=== PATIENT | female | born 1930 | race Asian ===

== ENCOUNTER 2018-10-18 10:09 | Inpatient (IN) | payer MEDICARE, OTHER ==
[~2018-10-18] VITALS: Ht 157.5 cm; Wt 48.1 kg
[2018-10-18 10:38] VITALS: BP 125/72
[2018-10-18] MEDS ORDERED: GABAPENTIN100 MG ORAL (10:57)
[2018-10-18] MEDS ORDERED: ARICEPT23 MG ORAL (10:57)
[2018-10-18] MEDS ORDERED: ACETAMINOPHEN500 M5 ORAL (10:57)
[2018-10-18] MEDS ORDERED: COREG6.25 MG ORAL (10:57)
[2018-10-18] MEDS ORDERED: FAMOTIDINE20 MG ORAL (10:57)
[2018-10-18] MEDS ORDERED: CYMBALTA20 MG ORAL (10:57)
[2018-10-18] MEDS ORDERED: CENTRUM SILVER1 EAC5 PO (10:57)
[2018-10-18] MEDS ORDERED: NAMENDA5 MG ORAL (11:01)
[2018-10-18] MEDS ORDERED: LUTEIN20 M1 PO (11:01)
[2018-10-18] MEDS ORDERED: PANTOPRAZOLE SO20 MG ORAL (11:01)
[2018-10-18] MEDS ORDERED: NITROFURANTOIN100 M2 ORAL (11:01)
[2018-10-18] MEDS ORDERED: LIDOCAINE700 M1 TP (11:01)
[2018-10-18] MEDS ORDERED: IRON325 M1 PO (11:01)
[2018-10-18] MEDS ORDERED: NORVASC10 MG ORAL (11:01)
--- NOTE | 2018-10-18 11:02 | NUR ---
ED Nurse Note: Patient javier to ER by family member due to increased confusion and paranoia. Alert and oriented x3, verbally responsive and has hearing problem. Patient is ambulatory with walker. Bladder/ bowel incontinent. Patient has history of multiple fall, CHD, stents, MCI. No SOB, Breathing even and unlabored.
[2018-10-18] MEDS ORDERED: ACETAMINOPHEN500 MG ORAL (11:03)
[2018-10-18] MEDS ORDERED: SPIRONOLACTONE100 MG ORAL (11:03)
[2018-10-18 11:18] LABS: BASOPHILS % (AUTO) 1.7 % (0.0-2.0); EOSINOPHILS % (AUTO) 1.8 % (0.0-3.0); HEMATOCRIT 42.2 % (37.0-47.0); HEMOGLOBIN 15.2 G/DL (12.0-16.0); LYMPHOCYTES % (AUTO) 11.7 % (20.0-45.0); MEAN CORPUSCULAR VOLUME 94 FL (80-99); MONOCYTES % (AUTO) 3.3 % (1.0-10.0); NEUTROPHILS % (AUTO) 81.5 % (45.0-75.0); PLATELET COUNT 186 K/UL (150-450); RED BLOOD COUNT 4.48 M/UL (4.20-5.40); WHITE BLOOD COUNT 12.1 K/UL (4.8-10.8)
[2018-10-18 11:32] LABS: ANION GAP 12 mmol/L (5-15); BLOOD UREA NITROGEN 14 mg/dL (7-18); CALCIUM 9.5 MG/DL (8.5-10.1); CARBON DIOXIDE 24 MMOL/L (21-32); CHLORIDE 94 MMOL/L (98-107); CREATININE 1.2 MG/DL (0.55-1.30); POTASSIUM 3.9 MMOL/L (3.5-5.1); SODIUM 130 MMOL/L (136-145)
[2018-10-18 11:47] LABS: ALANINE AMINOTRANSFERASE 19 U/L (12-78); ALBUMIN 3.3 G/DL (3.4-5.0); ALBUMIN/GLOBULIN RATIO 0.8 (1.0-2.7); ALKALINE PHOSPHATASE 78 U/L (46-116); ASPARTATE AMINO TRANSFERASE 30 U/L (15-37); BILIRUBIN,DIRECT 0.3 MG/DL (0.0-0.3); BILIRUBIN,TOTAL 1.6 MG/DL (0.2-1.0); CKMB 2.8 NG/ML (0.0-3.6); CREATINE KINASE 100 U/L (26-308)
[2018-10-18 12:01] LABS: APPEARANCE,URINE SLIGHTLY CLOUDY; BILIRUBIN, URINE NEGATIVE (NEGATIVE); GLUCOSE, URINE (UA) NEGATIVE (NEGATIVE); KETONES,URINE 3+ (NEGATIVE); LEUKOCYTE ESTERASE ,URINE 2+ (NEGATIVE); NITRITE,URINE POSITIVE (NEGATIVE); PH,URINE 6.5 (4.5-8.0); PROTEIN,URINE 1+ (NEGATIVE); UROBILINOGEN,URINE NORMAL MG/DL (0.0-1.0)
[2018-10-18 12:02] LABS: COLOR,URINE YELLOW
--- NOTE | 2018-10-18 12:14 | Emergency Room Report ---
History of Present Illness General Chief Complaint: General Complaint Source: Patient, Family Member Present Illness HPI Patient presents emergency department today with acute altered mental status. Patient apparently has been having abnormal behavior with multiple episodes of falls. Patient denies any specific complaints but according to patient's son patient has been progressively getting worse. Patient's primary care physician is Dr. Stephan Arndt. Patient is currently at an assisted living facility but essentially being difficult to handle and therefore was sent here for further evaluation. Patient has significant confusion and paranoia. Symptoms noted to be severe. Patient has not been eating or drinking. Is found wandering the crews sometimes naked. Patient apparently has been talking to herself and having delusions. Denies suicidal homicidal ideations. No other modifying factors. No other associated signs and symptoms. No other complaints were noted. Allergies: Coded Allergies: ACETAMINOPHEN (Verified Allergy, Unknown, 10/18/18) CIPROFLOXACIN (Verified Allergy, Unknown, 10/18/18) CODEINE (Verified Allergy, Unknown, 10/18/18) IBUPROFEN (Verified Allergy, Unknown, 10/18/18) IODINE (Verified Allergy, Unknown, 10/18/18) NAPROXEN (Verified Allergy, Unknown, 10/18/18) OXYCODONE (Verified Allergy, Unknown, 10/18/18) PENICILLINS (Verified Allergy, Unknown, 10/18/18) Shrimp (Verified Allergy, Unknown, 10/18/18) Uncoded Allergies: BRUSSEL SPROUTS (Allergy, Unknown, 10/18/18) LACTOSE INTOLERANT (Allergy, Unknown, 10/18/18) PLASTIC TAPE (Allergy, Unknown, 10/18/18) Patient History Past Medical History: HTN Past Surgical History: none Pertinent Family History: none Social History: Denies: smoking, alcohol use, drug use Now: No Reviewed Nursing Documentation: PMH: Agreed; PSxH: Agreed Nursing Documentation-PMH Past Medical History: No History, Except For Hx Hypertension: Yes Review of Systems All Other Systems: negative except mentioned in HPI Physical Exam Vital Signs Date Time Temp Pulse Resp B/P (MAP) Pulse Ox O2 Delivery O2 Flow Rate FiO2 10/18/18 10:19 98.1 88 20 104/66 (79) 95 Room Air Sp02 EP Interpretation: reviewed, normal General Appearance: alert, mild distress Head: normocephalic Eyes: bilateral eye normal inspection ENT: normal ENT inspection, hearing grossly normal, normal voice Neck: normal inspection, full range of motion, supple, no bony tend Respiratory: normal inspection, lungs clear, normal breath sounds, no respiratory distress, no retraction, no wheezing Cardiovascular #1: regular rate, rhythm, no edema Gastrointestinal: normal inspection, normal bowel sounds, non tender, soft, no guarding, no hernia Genitourinary: no CVA tenderness Musculoskeletal: normal inspection, back normal, normal range of motion Neurologic: normal inspection, alert, responsive, speech normal Psychiatric: normal inspection, judgement/insight normal, mood/affect normal Medical Decision Making Diagnostic Impression: Primary Impression: UTI (urinary tract infection) Additional Impressions: Acute alteration in mental status Mild dehydration ER Course Patient presents emergency department today complaint acute altered mental status and weakness. Patient is recently being treated for UTI as well. Symptoms noted to be severe. Patient is not eating and drinking. Differential diagnoses include acute sepsis, electrolyte abnormality, CVA, intracranial injury, fracture just name a few. Given the severity of the patient's presentation I felt this is a highly complex patient. This patient required extensive workup. Patient laboratory work-up shows evidence UTI. Patient also appeared clinically slightly dehydrated was given fluids. Because of patient's severe altered mental status and ability to thrive out of her own and inability care for self I feel the patient require admission. Will discuss case with Dr. Stephan Sorenson for admission. Labs Test 10/18/18 10:56 10/18/18 11:37 White Blood Count 12.1 K/UL (4.8-10.8) Red Blood Count 4.48 M/UL (4.20-5.40) Hemoglobin 15.2 G/DL (12.0-16.0) Hematocrit 42.2 % (37.0-47.0) Mean Corpuscular Volume 94 FL (80-99) Mean Corpuscular Hemoglobin 33.9 PG (27.0-31.0) Mean Corpuscular Hemoglobin Concent 35.9 G/DL (32.0-36.0) Red Cell Distribution Width 12.0 % (11.6-14.8) Platelet Count 186 K/UL (150-450) Mean Platelet Volume 5.5 FL (6.5-10.1) Neutrophils (%) (Auto) 81.5 % (45.0-75.0) Lymphocytes (%) (Auto) 11.7 % (20.0-45.0) Monocytes (%) (Auto) 3.3 % (1.0-10.0) Eosinophils (%) (Auto) 1.8 % (0.0-3.0) Basophils (%) (Auto) 1.7 % (0.0-2.0) Sodium Level 130 MMOL/L (136-145) Potassium Level 3.9 MMOL/L (3.5-5.1) Chloride Level 94 MMOL/L (98-107) Carbon Dioxide Level 24 MMOL/L (21-32) Anion Gap 12 mmol/L (5-15) Blood Urea Nitrogen 14 mg/dL (7-18) Creatinine 1.2 MG/DL (0.55-1.30) Estimat Glomerular Filtration Rate mL/min (>60) Glucose Level 137 MG/DL (74-106) Calcium Level 9.5 MG/DL (8.5-10.1) Total Bilirubin 1.6 MG/DL (0.2-1.0) Direct Bilirubin 0.3 MG/DL (0.0-0.3) Aspartate Amino Transf (AST/SGOT) 30 U/L (15-37) Alanine Aminotransferase (ALT/SGPT) 19 U/L (12-78) Alkaline Phosphatase 78 U/L (46-116) Total Creatine Kinase 100 U/L (26-308) Creatine Kinase MB 2.8 NG/ML (0.0-3.6) Creatine Kinase MB Relative Index 2.8 Troponin I 0.020 ng/mL (0.000-0.056) Pro-B-Type Natriuretic Peptide 2537 pg/mL (0-125) Total Protein 7.3 G/DL (6.4-8.2) Albumin 3.3 G/DL (3.4-5.0) Globulin 4.0 g/dL Albumin/Globulin Ratio 0.8 (1.0-2.7) Lipase 144 U/L (73-393) Urine Color Yellow Urine Appearance Slightly cloudy Urine pH 6.5 (4.5-8.0) Urine Specific [place] 1.010 (1.005-1.035) Urine Protein 1+ (NEGATIVE) Urine Glucose (UA) Negative (NEGATIVE) Urine Ketones 3+ (NEGATIVE) Urine Blood 1+ (NEGATIVE) Urine Nitrite Positive (NEGATIVE) Urine Bilirubin Negative (NEGATIVE) Urine Urobilinogen Normal MG/DL (0.0-1.0) Urine Leukocyte Esterase 2+ (NEGATIVE) Urine RBC 0-2 /HPF (0 - 2) Urine WBC 2-4 /HPF (0 - 2) Urine Squamous Epithelial Cells Occasional /LPF Urine Bacteria Many /HPF (NONE) EKG Diagnostic Results Rate: normal Rhythm: NSR ST Segments: no acute changes Other Impression PVCs Rhythm Strip Diag. Results EP Interpretation: yes Rate: 73 Rhythm: NSR, no ectopy, other - Occasional PVCs Last Vital Signs Date Time Temp Pulse Resp B/P (MAP) Pulse Ox O2 Delivery O2 Flow Rate FiO2 10/18/18 10:38 96.4 79 18 125/72 98 Room Air Status: improved Disposition: ADMITTED INPATIENT Condition: Serious Referrals: Stephan Sorenson MD (PCP) Esteban Valverde MD Oct 18, 2018 12:14
[2018-10-18] MEDS ORDERED: cefTRIAXone 1 GM in NS 55 ML IVPB ONE (12:15)
--- NOTE | 2018-10-18 12:22 | Diagnostic Imaging Report ---
Indication: Headache. Head trauma Technique: Contiguous 5 mm thick transaxial imaging of the head obtained in a Siemens Sensation [address] scanner. Soft tissue and bone windows generated. Automatic Exposure Control was utilized. Total Dose length Product (DLP): 1425.[address] Dose Index Volume (CTDIvol): 70.38 mGy Comparison: none Findings: There is moderate prominence of the ventricles, basal cisterns, and cerebral sulci consistent with atrophy. Moderate, nonspecific, white matter hypoattenuation is noted throughout the brain consistent with chronic small vessel disease. There is no midline shift, edema, acute hemorrhage, mass effect, or abnormal extra-axial fluid collections. Bones are unremarkable. Impression: No acute intracranial bleed, mass effect or edema. Moderate atrophy of the brain. Evidence of chronic small vessel disease involving white matter tracts. The CT scanner at [facility] is accredited by the [employer] and the scans are performed using dose optimization techniques as appropriate to a performed exam including Automatic Exposure control.
--- NOTE | 2018-10-18 12:27 | Diagnostic Imaging Report ---
Indication: Cough Comparison: None A single view chest radiograph was obtained. Findings: No definite infiltrate or pulmonary vascular congestion identified. The heart is normal in size. The aorta is mildly enlarged consistent with atherosclerotic vascular disease. The bones are osteopenic. Impression: No acute disease
[2018-10-18 12:44] VITALS: BP 130/47
--- NOTE | 2018-10-18 12:46 | NUR ---
ED Nurse Note: covering for primary RN, recieved pt on gurney, awake able to comprehend, no complaint at the moment. with vss. will continue to monitor.
--- NOTE | 2018-10-18 12:48 | NUR ---
ED Nurse Note: [phone] terry healy. pt son in the waiting room
--- NOTE | 2018-10-18 14:20 | NUR ---
ED Nurse Note: Spoke with Sawyer JENNINGS from [facility] to give report. Addendum: 10/18/18 at 1433 by FATEMEH Amendment undone in EDM - 10/18/18 at 1441 by FATEMEH Spoke with Sawyer JENNINGS requesting to transfer the patient to SDU after 30 mins. Charge nurse made aware and acknowledged.
--- NOTE | 2018-10-18 14:20 | NUR ---
ED Nurse Note: Spoke with Sawyer JENNINGS from [facility] requesting to transfer paient after 30mins. Charge nurse made aware and acknowledged.
[2018-10-18 14:31] VITALS: BP 122/57
--- NOTE | 2018-10-18 15:00 | NUR ---
NURSE NOTES: Received patient from ER via gurney. Patient is alert and oriented x2-3 @ this time. Son mentioned that patient had episodes of poor po intake, with delusional thinking with visual hallucination with multiple falls within few months and weight loss of more than 30 ibs within 8 months.Denies any visual hallucination or delusional thinking @ this time. Denies any pain or discomfort. Medical history obtained from patient's son Arun who provided copy of advanced directives. Orientation given about the unit, meal times, call light use, fall precaution and etc. Demonstrated how to use call light. Patient is in yellow gown, socks for fall precautions, Door signed in place and allergy and fall risk band on left wrist. Patient is wearing upper and lower dentures.glasses and silver colored ring. Ring does not come off so son can not take it with him. Son will take assisted living keys with him.all belongings were checked by RN and son. Skin assessment done noted with multiple scrape on right face bilateral arms and lower ex's from previous falls and no edema or skin break. No redness on pressure points. Bed alarm is on for safety, Dr. Sorenson was paged for admission orders. Awaiting for return call.
[2018-10-18 16:00] VITALS: BP 118/62
--- NOTE | 2018-10-18 16:56 | NUR ---
NURSE NOTES: Received some admission order from Dr. Sorenson and he will come and put more order like DVT prophylaxis.
--- NOTE | 2018-10-18 17:30 | NUR ---
NURSE NOTES: patient consumed 75% of dinner and hydrated.
[2018-10-18] MEDS ORDERED: Memantine 10mg tab ORAL SCH (18:00)
--- NOTE | 2018-10-18 19:20 | NUR ---
NURSE NOTES: Dr. Sorenson came in to check the patient.
--- NOTE | 2018-10-18 19:26 | NUR ---
HAND-OFF: Report given to Anita.
--- NOTE | 2018-10-18 19:44 | NUR ---
NURSE NOTES: Received patient in bed, awake, alert, oriented x3/4, no acute distress noted, on room air, patient can ambulate with assistance to bedside commode, call light is within reach, bed is in low position, locked and alarm is on.Will continue to monitor for safety and comfort.
[2018-10-18 20:00] VITALS: BP 107/60
--- NOTE | 2018-10-18 20:11 | History & Physical ---
History and Physical History & Physicial Admitted: October 18, 2018. Patient I.D.: 88 year-old woman with anorexia, progressive confusion, hallucinations, and multiple falls. Two falls in last several days with periorbital ecchymosis and recent hip contusion. Partially treated E coli urinary tract infection. Patient admitted for intravenous antibiotics, further evaluation, medication titration, and assessment of her ability to return to her present setting. History of Present Illness: Ms. Hughes is a patient with a complex history of multiple chronic medical problems. She was first seen in the office in March of this year as a consultation requested by Dr. Joel Garland. At that time, Ms. Hughes presented with multifactorial failure to thrive, manifested by progressive weight loss beginning in March 2017, multiple falls, and fluctuating mental status with episodic disorientation, amnestic deficits, depressive symptomatology, and psychosis with hallucinations and delusions. 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 As an outpatient in the interim, medication adjustments have been made with tapering of gabapentin used for neuropathic and chronic pain, and the addition of Cymbalta, Aricept, and Namenda. Rozerem was also used briefly. Initially the patient appeared to respond, with improved alertness and affect. However in recent months, she has become more confused and experienced a number of falls with superficial trauma, some of which have required emergency department evaluation. At the same time the patient's oral intake has been poor and her weight loss has progressed with approximately 40 pounds of weight loss over 18-months. Recently with her further decline, laboratories were obtained and revealed evidence of a probable E. coli urinary tract infection. Macrobid was begun as an outpatient, however the patient continued to fall with at least 2 episodes over the last week, resulting in a right periorbital hematoma. Patient also became progressively more weak and unsteady on her feet, requiring more assistance and her [facility] facility. Her poor intake continued, and her son reported that she exhibited little interest, often isolating herself in her room , with occasional outbursts when refusing care or medications. The facility to discuss the possibility of moving her to a higher level of supervision. Because of the multiple falls and increasing confusion, after discussion with her son, it was decided to have her brought to the emergency room for further evaluation. In the emergency room, the patient had evidence of a mild leukocytosis and persistent bacteriuria with resolving pyuria, consistent with a partially treated urinary tract infection. Given the progressive weight loss, increasing confusion with possible psychiatric overlay, and the increasing weakness, it was decided to admit the patient for further evaluation and treatment. Past Medical History: 1. History of lupus and/or rheumatoid arthritis treated with low-dose prednisone, which is been tapered off over the last year, followed by Dr. Neil Mo. 2. History of coronary artery disease status post myocardial infarction with placement of 3 stents, and persistent left ventricular dysfunction. 3. Hypertension. 4. History of hypothyroidism, previously supplemented with levothyroxine, which was apparently discontinued sometime late last year. 5. History of osteoarthritis, with prior L2 L4 laminectomies. 6. Decreased visual acuity status post cataract surgeries with age-related macular degeneration with diminished ability to read requiring magnifying glass. 7. History of gastroesophageal reflux disease. 8. Lifelong difficult personality, with onset over the last several years of depressed affect, paranoia, and psychotic manifestations of hallucination and delusions. 9. Several year history of gradually progressive possible cognitive deficits, patchy. 10. Finding of old left occipital cerebrovascular accident on prior brain scan along with small vessel ischemic changes. 11. Recent urinary tract infections. 12. Possible sleep disorder with nocturnal wandering. 13. Significant progressive weight loss as described. 14. Progressive weakness with gait instability. 15. Apparent neuropathic pain with complaints of low back pain, treated with gabapentin in the past. Medications: 1. Amlodipine 10 mg daily. 2. Spironolactone 25 mg daily. 3. Carvedilol 6.25 mg twice daily. 4. Gabapentin 100 mg twice a day. 5. Famotidine 30 mg daily. 6. Pantoprazole 40 mg nightly. 7. Lidocaine patch as needed 8. Lutein 20 mg daily. 9. Centrum Silver daily. 10. Cymbalta 20 mg daily. 11. Donepezil 10 mg daily. 12. Namenda extended release 28 mg daily. Allergies: Multiple reported allergies and/or intolerances including acetaminophen, ciprofloxacin, codeine, ibuprofen, Naprosyn, oxycodone, penicillins, plastic tape, iodine, lactose intolerance, shrimp, [place] sprouts. Social History: Ms. 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 She was approximately 7 years ago. She lost 1 son alcoholism. Her other son Arun is her surrogate decision maker and sister with her living arrangements and financial arrangements. She moved into an [facility] last year. Family History: Notable for multiple family members afflicted with hypertension, cardiac disease , coronary artery disease, and cerebrovascular disease. History of cancer in father and 2 sisters. History of alcoholism in father and son. History of domestic violence. Review of Systems: Despite the multiple symptoms reported by the patient's son and by caregivers at her facility, currently the patient denies all symptoms except for some mild tenderness and discomfort in the right periorbital area associated with her prior fall, and a area of right hip contusion associated with another fall. Her response is likely unreliable given her current affect and mental status. Physical Examination: Blood pressure 104/66, heart rate 88 and regular, respiratory rate 20, temperature 98.1, oxygen saturation 95% on room air. Alert, flat affect, passive, but not in any acute distress. Appears slightly bewildered. Reports that it is the end of October, identifies this is [facility] , and accurately states she is living in a facility in [place]. Her speech is fluent with no evidence of dysarthria or word finding difficulties inconsistent with her baseline. Head and neck: Resolving right periorbital abrasions and contusions with ecchymosis. Patient denies pain with extraocular movements. Vision is limited but apparently not more so than her baseline. Oropharynx is minimally dry. Neck without masses and with normal range of motion. Breasts: No dominant masses. Chest: Distant breath sounds but clear. At times the patient's speech appears to be slightly breathless however her respirations do not reflect any overt tachypnea or bronchospasm. Cardiac: Regular rhythms without overt gallops murmurs or rubs. Abdomen: Normal bowel sounds. Soft nontender without masses or organomegaly appreciated. No suprapubic tenderness. Extremities: No distal edema no calf tenderness or cords. Neurological: Moves all extremities with no evidence of new focality. Laboratory Data: WBC 12.1, hematocrit 42.2%, MCV 94, platelet count 186, with 81.5% neutrophils. Sodium 130, potassium 3.9, chloride 94, carbon dioxide 24, BUN 14, creatinine 1.2, glucose 137, calcium 9.5, total bilirubin 1.6, direct bili 0.3, AST 30, ALT 19, alkaline phosphatase 78, total CK 100, CK-MB 2.8, troponin 0 0.02, proBNP 2537, total protein 7.3, albumin 3.3, lipase 144. Urinalysis with specific gravity 1.010 protein 1+, ketones 3+, blood 1+, nitrite positive, leukocyte esterase 2+, RBC 0-2, WBCs 2-4, bacteria many. Chest x-ray shows no evidence of acute disease. Head CT scan shows chronic small vessel disease white matter with moderate atrophy with no evidence of acute bleed mass-effect or edema. Electrocardiogram shows nonspecific T wave changes first-degree AV block with occasional PACs with aberrant conduction normal QT interval. Impression/Plan: Ms. Hughes presents with multifactorial failure to thrive. She has a partially treated E. coli urinary tract infection. Despite several days of oral Macrobid she presented with significant bacteriuria and a mild leukocytosis. She was given ceftriaxone in the emergency room and this will be continued pending repeat culture results and clinical response. Abdominal and pelvic imaging could be considered to rule out upper tract anatomy and stones which could be decreasing the efficacy of therapy. There may be other occult metabolic factors contributing as well. Laboratories will be checked to rule out such contribution. Patient's cognitive status and psychiatric presentation are difficult to disentangle. There appears to have been a history of characterologic symptoms which may be exacerbated with the current reported psychotic symptoms. In addition the patient appears to have had a significant depressive syndrome for a number of years which may have been primary or secondary to cognitive changes. In addition there appears to be underlying small vessel cerebrovascular disease with a history of prior discrete occipital stroke. Whether the stroke is contributing in the patient's visual loss is not clear at this time and may be difficult to ascertain. Finally there appears to be a component of delirium or encephalopathy likely associated with the urinary tract infection and/or other metabolic processes. Patient's medications may also be contributing both to her cognitive status as well as to gait instability, weakness, and weight loss. Given the patient's relatively low blood pressure, the patient's antihypertensives will be held for the time being. Echocardiography will be done to evaluate the patient's current ejection fraction and the relative indication for spironolactone and carvedilol. Because of the patient's patchy memory loss, the diagnosis of Alzheimer's dementia is uncertain, and the benefit of the patient's Namenda and even possibly Aricept is unclear. Because of potential effects on appetite, the Namenda will be decreased in dosage. Patient's gabapentin will be discontinued at this point because of the potential sedating effects. The duloxetine will be continued and a low dose of escitalopram will be added. Rozerem will be given as delirium prophylaxis at least initially. Because of the patient's fall risk, and the fact that she will be mobilize as much as possible, antithrombotic therapy will not be initiated initially. In addition, sequential compression devices may add to the patient's confusion and paranoia and will not be employed for the time being. Additional intervention will be considered depending on the patient's response to therapy and further laboratory results. Given the patient's significant weight loss and her evident frailty at the present time, a discharged to nursing home facility for a period of rehabilitation would be a consideration prior to returning to her prior level of care. The patient situations been reviewed thoroughly with the patient's son, who concurs with the present approach. He verifies that the patient is to be DNR given her function overall prognosis and quality of life, but she should receive usual therapies as noted. Stephan Sorenson MD Oct 18, 2018 20:11
[2018-10-18] MEDS: Donepezil 10mg tab ORAL SCH (20:29)
[2018-10-18] MEDS: Ramelteon 8mg tab (Approved for Delirium use only) ORAL SCH (20:29)
--- NOTE | 2018-10-18 20:32 | NUR ---
CASE MANAGEMENT: REVIEW 88Y/F PRESENTED TO ED FROM [facility] CC: CONFUSION . POOR ORAL INTAKE SI: AMS . S/P FALL . DEHYDRATION . UTI T 96.4 HR 79 RR 18 BP 125/72 SAT 98% ROOM AIR WBC 12.1 NA 130 BNP 2537 UA: NITRITE + LEUKOCYTE ESTERASE 2+ BACTERIA MANY IS: NS IVF BOLUS X1 CEFTRIAXONE IV X1 PATIENT ADMITTED TO MED/SURG UNIT 10/18/2018 DCP: PATIENT IS FROM [facility]
[2018-10-19 00:09] VITALS: BP 100/59
[2018-10-19 04:00] VITALS: BP 119/61
[2018-10-19 06:41] LABS: BASOPHILS % (AUTO) 1.1 % (0.0-2.0); EOSINOPHILS % (AUTO) 6.5 % (0.0-3.0); HEMOGLOBIN 14.7 G/DL (12.0-16.0); LYMPHOCYTES % (AUTO) 13.8 % (20.0-45.0); MEAN CORPUSCULAR VOLUME 96 FL (80-99); MONOCYTES % (AUTO) 6.1 % (1.0-10.0); NEUTROPHILS % (AUTO) 72.5 % (45.0-75.0); PLATELET COUNT 190 K/UL (150-450); RED BLOOD COUNT 4.29 M/UL (4.20-5.40); WHITE BLOOD COUNT 12.5 K/UL (4.8-10.8)
--- NOTE | 2018-10-19 06:42 | NUR ---
HAND-OFF: Report given to Mina JENNINGS. Addendum: 10/19/18 at 0646 by KEREN SINGER RN report is given to Sawyer JENNINGS
--- NOTE | 2018-10-19 07:20 | NUR ---
NURSE NOTES: Received patient in bed, alert and awake x3. Not in respiratory/cardiac distress. IV intact, no s/s of infiltration. Bed is in lowest position and locked. Call light within reach. Patient consumed 100% of breakfast and hydrating herself. Reminded patient to call nurses if needed. Patient able to make her needs known. Will continue plan of care.
[2018-10-19 07:21] LABS: ANION GAP 12 mmol/L (5-15); BLOOD UREA NITROGEN 9 mg/dL (7-18); CALCIUM 9.3 MG/DL (8.5-10.1); CARBON DIOXIDE 24 MMOL/L (21-32); CHLORIDE 96 MMOL/L (98-107); POTASSIUM 4.3 MMOL/L (3.5-5.1); SODIUM 132 MMOL/L (136-145)
[2018-10-19 08:00] VITALS: BP 137/68
[2018-10-19] MEDS: Memantine 5 MG TAB ORAL SCH ×2 (08:20→18:08)
--- NOTE | 2018-10-19 09:21 | NUR ---
P.T Note: P.T evaluation completed and treatment initiated. Please refer to P.T evaluation for current functional status. Pt is alert, O x 4 , pleasant and cooperative. Pt denied c/o major pain but facial soreness at the R orbit and Zygomatic area. Pt also c/o feeling generally weak and unstable with walking leading her fall multiple times at the place she's currently residing. Pt currently require SBA X 1 for bed mobility, min a x 1 for transfers and CGA x 1 for gait/ambulation activities. Skilled P.T service is warranted to improve her strength, balance and endurance to increase her mobility independence and safety. Recommend SNF for further rehab to further increase safe mobility and independence at [place]. Pt is cleared for OOB activities with nursing assistance. Thank you for this referral.
[2018-10-19] MEDS: cefTRIAXone 1 GM in D5W 55 ML IVPB SCH (10:00)
--- NOTE | 2018-10-19 11:38 | NUR ---
RD ASSESSMENT & RECOMMENDATIONS SEE CARE ACTIVITY FOR COMPLETE ASSESSMENT DAILY ESTIMATED NEEDS: Needs based on wt loss/ 48kg 28-33 kcals/kg 1654-0912 total kcals 1-1.5 g protein/kg 48-72 g total protein 25-30 mL/kg 1483-2210 total fluid mLs NUTRITION DIAGNOSIS: Unintentional wt loss R/T poor appetite as evidenced by pt reports significant wt loss of 34lbs/24.6% in <7-8 months. CURRENT DIET:KEN, mech soft chopped PO DIET RECOMMENDATIONS: Low Na/ texture as tolerated ADDITIONAL RECOMMENDATIONS: * Calibrated bedscale wt for accurate CBW * Weekly wt monitoring given possible h/o significant wt loss * Monitor PO intake closely- pt reports appetite is better * Snacks BID in b/w meals * MVI x 1 as supplement
[2018-10-19 12:00] VITALS: BP 121/61
[2018-10-19 16:00] VITALS: BP 119/71
--- NOTE | 2018-10-19 16:25 | Geriatric Progress Note ---
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 years (4) History of coronary artery stent placement (5) Cardiomyopathy (6) Hypertension (7) Lupus (systemic lupus erythematosus) (8) Osteoarthritis (9) Status post cataract extraction and insertion of intraocular lens of left eye (10) Status post cataract extraction and insertion of intraocular lens of right eye (11) Age-related macular degeneration (12) Hearing loss (13) Hypothyroidism (14) Depressed affect (15) Hallucinations, unspecified (16) Sleep disorder (17) Frequent falls (18) UTI (urinary tract infection) (19) Altered mental status (20) Acute alteration in mental status Assessment/Plan Patient with no significant hypertension despite being off meds. Continue to monitor. History of NV, s/p stents with decreased EF per son. Echo pending to evaluate current status, ? if Coreg should be restarted. Eating slightly better, monitor. History of 40 lb. weight loss over 18 months. Elevated TSH, with history of prior T4 use. Recheck TSH and other TFTs to determine if T4 supplementation indicated. Depressed affect with patchy inconsistent memory deficits. Proportion of fixed cognitive loss, possible psychosis associated with sensory deficits, delirium associated with UTI, and pseudodementia of depression unclear. Tolerating addition of low dose Lexapro so far, monitor. Continue Ceftriaxone for now. Recheck labs, await echo. Discussed with son x 20 minutes re status, differential diagnoses, treatment approach and possible d/c options. He concurs with present approach. Discussed with: patient, family, hospital staff Subjective Interval Events Patient quiet, flat, but denies c/o. Staff reports no behavioral issues. Ate 100% at breakfast, less at lunch. P.T. notes with FWW, CGA x 1, patient unsteady, with LOB on turns. Labs with some decrease in BNP, still mild leukocytosis. No Urine growth as yet. Elevated TSH. Bp acceptable off meds so far. Constitutional: Denies: chills, pain, sweats, fever Respiratory: Denies: shortness of breath Cardiovascular: Denies: chest pain Gastrointestinal/Abdominal: Denies: abdominal pain, nausea Genitourinary: Denies: dysuria - Denies all c/o. Geriatric Geriatric Last 24 Hour Vital Signs Date Time Temp Pulse Resp B/P (MAP) Pulse Ox O2 Delivery O2 Flow Rate FiO2 10/19/18 12:00 98.0 87 19 121/61 (81) 99 10/19/18 09:00 Room Air 10/19/18 08:00 97.9 87 18 137/68 (91) 98 10/19/18 04:00 97.4 74 18 119/61 (80) 10/19/18 00:09 97.8 81 20 100/59 (73) 97 10/18/18 21:00 Room Air 10/18/18 20:00 98.1 78 20 107/60 (76) 96 Intake and Output 10/18/18 10/19/18 18:59 06:59 Intake Total 120 ml Balance 120 ml Intake Oral 120 ml # Voids 3 Laboratory Tests Test 10/19/18 05:55 White Blood Count 12.5 K/UL (4.8-10.8) H Red Blood Count 4.29 M/UL (4.20-5.40) Hemoglobin 14.7 G/DL (12.0-16.0) Hematocrit 41.0 % (37.0-47.0) Mean Corpuscular Volume 96 FL (80-99) Mean Corpuscular Hemoglobin 34.4 PG (27.0-31.0) H Mean Corpuscular Hemoglobin Concent 36.0 G/DL (32.0-36.0) Red Cell Distribution Width 10.0 % (11.6-14.8) L Platelet Count 190 K/UL (150-450) Mean Platelet Volume 5.5 FL (6.5-10.1) L Neutrophils (%) (Auto) 72.5 % (45.0-75.0) Lymphocytes (%) (Auto) 13.8 % (20.0-45.0) L Monocytes (%) (Auto) 6.1 % (1.0-10.0) Eosinophils (%) (Auto) 6.5 % (0.0-3.0) H Basophils (%) (Auto) 1.1 % (0.0-2.0) Sodium Level 132 MMOL/L (136-145) L Potassium Level 4.3 MMOL/L (3.5-5.1) Chloride Level 96 MMOL/L (98-107) L Carbon Dioxide Level 24 MMOL/L (21-32) Anion Gap 12 mmol/L (5-15) Blood Urea Nitrogen 9 mg/dL (7-18) Creatinine 1.0 MG/DL (0.55-1.30) Estimat Glomerular Filtration Rate mL/min (>60) Glucose Level 88 MG/DL (74-106) Calcium Level 9.3 MG/DL (8.5-10.1) Pro-B-Type Natriuretic Peptide 2150 pg/mL (0-125) H Thyroid Stimulating Hormone (TSH) 22.323 uiU/mL (0.358-3.740) Current Medications Medications (Trade) Dose Ordered Sig/Mansi Route PRN Reason Start Time Stop Time Status Last Admin Dose Admin Ceftriaxone Sodium 1 gm/ Dextrose 55 ml @ 110 mls/hr DAILY IVPB 10/19/18 09:00 10/26/18 08:59 10/19/18 10:00 Donepezil HCl (Aricept) 10 mg QHS ORAL 10/18/18 21:00 11/17/18 20:59 10/18/18 20:29 Duloxetine HCl (Cymbalta) 20 mg DAILY ORAL 10/19/18 09:00 11/18/18 08:59 10/19/18 08:20 Escitalopram Oxalate (Lexapro) 5 mg DAILY ORAL 10/19/18 09:00 11/18/18 08:59 10/19/18 08:20 Memantine (Namenda) 5 mg BID ORAL 10/19/18 09:00 11/17/18 17:59 10/19/18 08:20 Pantoprazole (Protonix) 40 mg DAILY ORAL 10/19/18 09:00 11/18/18 08:59 10/19/18 08:20 Ramelteon (Rozerem) 8 mg QHS ORAL 10/18/18 21:00 11/17/18 20:59 10/18/18 20:29 Height (Feet): 5 Height (Inches): 2.00 Weight (Pounds): 107 General Appearance: no apparent distress, alert, non-toxic Head: normocephalic, other - R periorbital abrasion and ecchymosis, healing. Eyes: bilateral anicteric ENT: normal voice Neck: full range of motion, no mass Respiratory: lungs clear - distal. Cardiovascular: regular rate, rhythm Gastrointestinal: normal bowel sounds, non tender, soft, no mass, no organomegaly, non-distended Musculoskeletal: no calf tenderness Edema: no edema noted Generalized Neurologic: alert, no new focality, other - Identifies date again as end of October 2018. Recalls this is [place], but thinks this her third day of admission. Recalls her residence at [place]. Recalls son retiring and moving to [place]. However, seems inaccurate about taking thyroid medication. Stephan Sorenson MD Oct 19, 2018 16:25
[2018-10-19] MEDS ORDERED: Tubing IV Secondary IV ONE (18:01)
--- NOTE | 2018-10-19 18:12 | Cardiology Report ---
APPROVED REPORT EXAM: Two-dimensional and M-mode echocardiogram with Doppler and color Doppler. INDICATION Cardiomyopathy M-Mode DIMENSIONS IVSd1.0 (0.7-1.1cm)Left Atrium (MM)1.6 (1.6-4.0cm) LVDd2.2 (3.5-5.6cm)Aortic Root3.4 (2.0-3.7cm) PWd1.3 (0.7-1.1cm)Aortic Cusp Exc.1.7 (1.5-2.0cm) IVSs1.6 cm LVDs1.1 (2.5-4.0cm) PWs0.9 cm Technically difficult study due to poor acoustical windows. Study quality precludes accurate assessment of regional wall motion. Normal left ventricular chamber size. Mildly reduced systolic function to extent visualized. Left ventricular ejection fraction estimated to be 45 %. No evidence of left ventricular hypertrophy . No evidence of pericardial effusion. All other cardiac chamber sizes are within normal limits. Focal aortic valve sclerosis with adequate cusp excursion. Thickened mitral valve leaflets with normal excursion. Mitral annulus and aortic root calcification. Pulmonic valve not well visualized. Normal tricuspid valve structure. IVC at size 1.6 cm without physiologic collapse . A color flow and spectral Doppler study was performed and revealed: Mild aortic regurgitation. Trace mitral regurgitation. Mitral diastolic velocities suggest reduced left ventricular relaxation c/w mild LV diastolic dysfunction (Grade I ). Trace tricuspid regurgitation. Tricuspid systolic velocities suggests peak right ventricular systolic pressure of 16 mmHg.
--- NOTE | 2018-10-19 18:23 | Cardiology Report ---
APPROVED REPORT EKG Measurement Heart [id number] Sinus rhythm with 1st degree AV block with premature atrial complexes with aberrant conduction Nonspecific T wave abnormality Abnormal ECG
--- NOTE | 2018-10-19 19:30 | NUR ---
HAND-OFF: Report given to Heidi.
--- NOTE | 2018-10-19 19:49 | NUR ---
NURSE NOTES: Patient in bed, awake, alert, verbally responsive. No s/s respiratory distress noted. No complaints of pain at this time. Call light is within reach, bed is in low position, locked and alarm is on. Will continue to monitor.
[2018-10-19 20:24] VITALS: BP 130/78
[2018-10-19] MEDS: Ramelteon 8mg tab (Approved for Delirium use only) ORAL SCH (20:39)
[2018-10-19] MEDS: Donepezil 10mg tab ORAL SCH (20:39)
--- NOTE | 2018-10-19 21:14 | NUR ---
CASE MANAGEMENT: REVIEW SI: AMS . S/P FALL . DEHYDRATION . UTI T 97.3 HR 96 RR 18 BP 130/78 SAT 95% ROOM AIR WBC 12.5 NA 132 BNP 21.50 TSH 22.323 IS: PROTONIX PO QD CEFTRIAXONE IV QD D5W @55ML/HR MED/SURG UNIT STATUS DCP: PATIENT IS FROM [facility]
[2018-10-20 00:10] VITALS: BP 125/65
[2018-10-20 04:24] VITALS: BP 118/67
--- NOTE | 2018-10-20 05:36 | NUR ---
NURSE NOTES: Patient asleep, no distress, v/s stable.
[2018-10-20 06:33] LABS: BASOPHILS % (AUTO) 1.2 % (0.0-2.0); HEMATOCRIT 41.9 % (37.0-47.0); HEMOGLOBIN 15.1 G/DL (12.0-16.0); LYMPHOCYTES % (AUTO) 16.6 % (20.0-45.0); MEAN CORPUSCULAR VOLUME 95 FL (80-99); MONOCYTES % (AUTO) 6.5 % (1.0-10.0); NEUTROPHILS % (AUTO) 67.8 % (45.0-75.0); PLATELET COUNT 199 K/UL (150-450); RED BLOOD COUNT 4.42 M/UL (4.20-5.40); RED CELL DISTRIBUTION WIDTH 9.8 % (11.6-14.8); WHITE BLOOD COUNT 9.3 K/UL (4.8-10.8)
--- NOTE | 2018-10-20 07:18 | NUR ---
HAND-OFF: Report given to JOSELITO PHILLIP RN.
--- NOTE | 2018-10-20 07:42 | NUR ---
NURSE NOTES: Received pt with stable condition. pt in bed with no sob nor in any form of distress noted. Breathing regular and unlabored. denies pain at this time. kept clean and comfortable. bed in lowest position. call light within reach at all time. will continue to monitor
[2018-10-20 08:00] VITALS: BP 121/63
[2018-10-20] MEDS: Memantine 5 MG TAB ORAL SCH ×2 (08:20→17:33)
[2018-10-20] MEDS: cefTRIAXone 1 GM in D5W 55 ML IVPB SCH (08:20)
[2018-10-20 09:33] LABS: ALANINE AMINOTRANSFERASE 21 U/L (12-78); ALBUMIN 2.7 G/DL (3.4-5.0); ALBUMIN/GLOBULIN RATIO 0.8 (1.0-2.7); ALKALINE PHOSPHATASE 68 U/L (46-116); ANION GAP 7 mmol/L (5-15); ASPARTATE AMINO TRANSFERASE 23 U/L (15-37); BILIRUBIN,TOTAL 0.9 MG/DL (0.2-1.0); BLOOD UREA NITROGEN 4 mg/dL (7-18); CALCIUM 8.7 MG/DL (8.5-10.1); CARBON DIOXIDE 27 MMOL/L (21-32); CHLORIDE 91 MMOL/L (98-107); CREATININE 0.8 MG/DL (0.55-1.30); SODIUM 125 MMOL/L (136-145)
--- NOTE | 2018-10-20 11:52 | NUR ---
P.T Note: P.T attempted however patient lethargic to participate. P.T will reattempt.
[2018-10-20 12:00] VITALS: BP 121/68
--- NOTE | 2018-10-20 14:47 | Geriatric Progress Note ---
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 years (4) History of coronary artery stent placement (5) Cardiomyopathy (6) Hypertension (7) Lupus (systemic lupus erythematosus) (8) Osteoarthritis (9) Status post cataract extraction and insertion of intraocular lens of left eye (10) Status post cataract extraction and insertion of intraocular lens of right eye (11) Age-related macular degeneration (12) Hearing loss (13) Hypothyroidism (14) Depressed affect (15) Hallucinations, unspecified (16) Sleep disorder (17) Frequent falls (18) UTI (urinary tract infection) (19) Altered mental status (20) Acute alteration in mental status (21) Hyponatremia (22) Hypokalemia (23) Hypomagnesemia Assessment/Plan Blood pressures remain controlled of medications. Echo with EF 45%. No specific indication for resumption of Coreg at this moment. Has sudden stopped eating again. Etiology not clear. TSH fluctuating, FT4 in normal range. Son now reports patient was taking levothyroxine 0.075 mg daily. Therefore will return to that dose and monitor further. More aggressively depressed, ? component of characterologic, ? rapid cycling, ? psychotic component, ? associated with electrolyte disturbance. For now will d/ c Rozerem and continue Cymbalta and Lexapro. Leukocytosis resolved. Continue Ceftriaxone for now. Marked change in electrolytes, will recheck and not initially supplement to r/o lab error. Otherwise, will need to supplement, and possibly restart spironolactone. Discussed with: patient, hospital staff Subjective Interval Events Patient on approach states "I am going to ." Patient thanks examiner for caring for her and says goodbye. Does not report specific symptoms, but when asked states she is short of breath, and c/o tenderness to palpation in BLEs distally. Has refused food today, and was too lethargic to cooperate with physical therapy. No agitation reported. Labs remarkable for decreased Na to 125, K to 3.0, Mg 1.5, BUN/Cr to 4/0.8. Wbc has normalized. Constitutional: Denies: chills, sweats, fever Respiratory: Reports: shortness of breath; Denies: cough Cardiovascular: Reports: palpitations; Denies: chest pain Gastrointestinal/Abdominal: Reports: abdominal pain, diarrhea Geriatric Geriatric Last 24 Hour Vital Signs Date Time Temp Pulse Resp B/P (MAP) Pulse Ox O2 Delivery O2 Flow Rate FiO2 10/20/18 12:00 97.3 84 18 121/68 (85) 96 10/20/18 09:31 Room Air 10/20/18 08:00 97.3 84 17 121/63 (82) 96 10/20/18 04:45 95 10/20/18 04:24 97.8 90 18 118/67 (84) 92 10/20/18 00:10 98.7 85 18 125/65 (85) 96 10/19/18 21:36 Room Air 10/19/18 20:24 97.3 96 18 130/78 (95) 95 10/19/18 16:00 98.0 84 17 119/71 (87) 98 Intake and Output 10/19/18 10/20/18 19:00 07:00 Intake Total 555 ml Balance 555 ml Intake Oral 500 ml IV Total 55 ml # Voids 4 2 # Bowel Movements 1 Laboratory Tests Test 10/20/18 05:11 10/20/18 08:40 White Blood Count 9.3 K/UL (4.8-10.8) Red Blood Count 4.42 M/UL (4.20-5.40) Hemoglobin 15.1 G/DL (12.0-16.0) Hematocrit 41.9 % (37.0-47.0) Mean Corpuscular Volume 95 FL (80-99) Mean Corpuscular Hemoglobin 34.3 PG (27.0-31.0) H Mean Corpuscular Hemoglobin Concent 36.2 G/DL (32.0-36.0) H Red Cell Distribution Width 9.8 % (11.6-14.8) L Platelet Count 199 K/UL (150-450) Mean Platelet Volume 5.3 FL (6.5-10.1) L Neutrophils (%) (Auto) 67.8 % (45.0-75.0) Lymphocytes (%) (Auto) 16.6 % (20.0-45.0) L Monocytes (%) (Auto) 6.5 % (1.0-10.0) Eosinophils (%) (Auto) 8.0 % (0.0-3.0) H Basophils (%) (Auto) 1.2 % (0.0-2.0) Erythrocyte Sedimentation Rate 46 MM/HR (0-30) H Sodium Level 125 MMOL/L (136-145) L Potassium Level 3.0 MMOL/L (3.5-5.1) L Chloride Level 91 MMOL/L (98-107) L Carbon Dioxide Level 27 MMOL/L (21-32) Anion Gap 7 mmol/L (5-15) Blood Urea Nitrogen 4 mg/dL (7-18) L Creatinine 0.8 MG/DL (0.55-1.30) Estimat Glomerular Filtration Rate mL/min (>60) Glucose Level 105 MG/DL (74-106) Calcium Level 8.7 MG/DL (8.5-10.1) Magnesium Level 1.5 MG/DL (1.8-2.4) L Total Bilirubin 0.9 MG/DL (0.2-1.0) Aspartate Amino Transf (AST/SGOT) 23 U/L (15-37) Alanine Aminotransferase (ALT/SGPT) 21 U/L (12-78) Alkaline Phosphatase 68 U/L (46-116) C-Reactive Protein, Quantitative 0.9 mg/dL (0.00-0.90) Pro-B-Type Natriuretic Peptide 2289 pg/mL (0-125) H Total Protein 6.2 G/DL (6.4-8.2) L Albumin 2.7 G/DL (3.4-5.0) L Globulin 3.5 g/dL Albumin/Globulin Ratio 0.8 (1.0-2.7) L Thyroid Stimulating Hormone (TSH) 15.448 uiU/mL (0.358-3.740) Free Thyroxine 1.00 NG/DL (0.76-1.46) Triiodothyonine (T3) Pending Current Medications Medications (Trade) Dose Ordered Sig/Mansi Route PRN Reason Start Time Stop Time Status Last Admin Dose Admin Ceftriaxone Sodium 1 gm/ Dextrose 55 ml @ 110 mls/hr DAILY IVPB 10/19/18 09:00 10/26/18 08:59 10/20/18 08:20 Donepezil HCl (Aricept) 10 mg QHS ORAL 10/18/18 21:00 11/17/18 20:59 10/19/18 20:39 Duloxetine HCl (Cymbalta) 20 mg DAILY ORAL 10/19/18 09:00 11/18/18 08:59 10/20/18 08:20 Escitalopram Oxalate (Lexapro) 5 mg DAILY ORAL 10/19/18 09:00 11/18/18 08:59 10/20/18 08:20 Memantine (Namenda) 5 mg BID ORAL 10/19/18 09:00 11/17/18 17:59 10/20/18 08:20 Pantoprazole (Protonix) 40 mg DAILY ORAL 10/19/18 09:00 11/18/18 08:59 10/20/18 08:20 Ramelteon (Rozerem) 8 mg QHS ORAL 10/18/18 21:00 11/17/18 20:59 10/19/18 20:39 Height (Feet): 5 Height (Inches): 2.00 Weight (Pounds): 107 General Appearance: alert - soft spoken, passive with more depressed affect. Head: normocephalic Eyes: bilateral anicteric Neck: full range of motion, no mass Respiratory: lungs clear - distant Cardiovascular: regular rate, rhythm - no ectopy appreciated. Gastrointestinal: normal bowel sounds, non tender, soft, no mass, no organomegaly, non-distended Musculoskeletal: no calf tenderness - but c/o tenderness diffusely to BLEs Edema: no edema noted Generalized Neurologic: no new focality Stephan Sorenson MD Oct 20, 2018 14:47
--- NOTE | 2018-10-20 15:19 | NUR ---
P.T NOTE: P.T REATTEMPTED THIS PM HOWEVER PATIENT TOO SLEEPY AND WOUND WAKE UP UPON P.T ATTEMPT. INFORMED DR. TERAN. WILL FOLLOW UP TOMORROW.
[2018-10-20 16:00] VITALS: BP 120/71
[2018-10-20 16:40] LABS: ANION GAP 11 mmol/L (5-15); BLOOD UREA NITROGEN 6 mg/dL (7-18); CALCIUM 8.5 MG/DL (8.5-10.1); CARBON DIOXIDE 24 MMOL/L (21-32); CHLORIDE 94 MMOL/L (98-107); CREATININE 0.7 MG/DL (0.55-1.30); POTASSIUM 3.1 MMOL/L (3.5-5.1); SODIUM 129 MMOL/L (136-145)
[2018-10-20] MEDS: Spironolactone 25mg tab ORAL SCH ×2 (18:15→19:11)
--- NOTE | 2018-10-20 19:08 | NUR ---
HAND-OFF: Report given to DICK Gordon.
[2018-10-20 20:00] VITALS: BP 129/73
[2018-10-20] MEDS ORDERED: SODIUM CHLORIDE IV ONE (20:00)
[2018-10-20] MEDS ORDERED: POTASSIUM CHLORIDE IV ONE (20:00)
--- NOTE | 2018-10-20 20:10 | NUR ---
NURSE NOTES: Patient in bed, asleep, verbally responsive. No s/s respiratory distress noted. No complaints of pain at this time. Call light is within reach, bed is in low position, locked and alarm is on. Will continue to monitor. Addendum: 10/20/18 at 2222 by KRYSTAL LONG RN RN IV intact, running IV fluids. Patient now incontinent, purewick was placed for urine specimen. Nurse explained to patient to call if she has the urge to urinate, patient verbalized understanding.
--- NOTE | 2018-10-20 20:26 | NUR ---
CASE MANAGEMENT: REVIEW SI: AMS . S/P FALL . DEHYDRATION . UTI T 97.3 HR 84 RR 18 BP 121/68 SAT 96% ROOM AIR ESR 46 NA 129 K 3.1 IS: PROTONIX PO QD CEFTRIAXONE IV QD D5W @55ML/HR PT EVAL MED/SURG UNIT STATUS DCP: PATIENT IS FROM [facility]
[2018-10-20] MEDS: Donepezil 10mg tab ORAL SCH (21:00)
--- NOTE | 2018-10-20 22:19 | NUR ---
NURSE NOTES: PATIENT REFUSED 2100 ARICEPT MEDICATION. NURSE EXPLAINED PURPOSE AND BENEFITS, PATIENT STILL REFUSED X2.
[2018-10-21 00:03] VITALS: BP 113/66
[2018-10-21 04:00] VITALS: BP 122/74
--- NOTE | 2018-10-21 07:06 | NUR ---
HAND-OFF: Report given to LOVELY PHILLIP RN.
--- NOTE | 2018-10-21 07:24 | NUR ---
NURSE NOTES: received report from DICK Howard. patient in bed. alert. oriented. verbally responsive. no respiratory distress on room air noted. no c/o pain at this time. RT side blindness, RTside hard to hearing. no solation. skin intact. IV on LAC20 saline lock intact. fall risk. bed in the lowest position. call light within reach. alarm on. will continue to provide plan of care. Addendum: 10/21/18 at 4326 by LOVELY PHILLIP RN NURSE NOTES: received report from DICK Gordon
[2018-10-21 07:29] LABS: BASOPHILS % (AUTO) 0.7 % (0.0-2.0); HEMATOCRIT 42.4 % (37.0-47.0); HEMOGLOBIN 15.3 G/DL (12.0-16.0); LYMPHOCYTES % (AUTO) 7.4 % (20.0-45.0); MEAN CORPUSCULAR VOLUME 96 FL (80-99); NEUTROPHILS % (AUTO) 83.9 % (45.0-75.0); PLATELET COUNT 187 K/UL (150-450); RED BLOOD COUNT 4.43 M/UL (4.20-5.40); WHITE BLOOD COUNT 12.9 K/UL (4.8-10.8)
[2018-10-21 07:40] LABS: ANION GAP 8 mmol/L (5-15); BLOOD UREA NITROGEN 5 mg/dL (7-18); CALCIUM 8.8 MG/DL (8.5-10.1); CARBON DIOXIDE 26 MMOL/L (21-32); CHLORIDE 94 MMOL/L (98-107); CREATININE 0.8 MG/DL (0.55-1.30); POTASSIUM 3.1 MMOL/L (3.5-5.1); SODIUM 128 MMOL/L (136-145)
[2018-10-21 08:00] VITALS: BP 123/62
--- NOTE | 2018-10-21 08:27 | NUR ---
NURSE NOTES: patient left unit for MRI. disconnect IV. Addendum: 10/21/18 at 1457 by LOVELY PHILLIP RN wrong patient entry
[2018-10-21] MEDS: Spironolactone 25mg tab ORAL SCH (09:20)
[2018-10-21] MEDS: Memantine 5 MG TAB ORAL SCH ×2 (09:21→17:46)
[2018-10-21] MEDS: cefTRIAXone 1 GM in D5W 55 ML IVPB SCH (09:22)
--- NOTE | 2018-10-21 11:01 | NUR ---
NURSE NOTES: called Dr. abraham and left message patient has ESBL urine. Potassium 3.1 this morning. waiting call back.
[2018-10-21 12:00] VITALS: BP 141/80
--- NOTE | 2018-10-21 12:39 | NUR ---
NURSE NOTES: received order from Dr. Sorenson. dc cefriazone IV. start macrobid 100mg po twice a day. potassium chloride 20meqx twice today. order noted and carried out.
[2018-10-21] MEDS ORDERED: Sodium Chloride for KCL Premix x 2hrs IV SCH ×2 (13:00→17:00)
--- NOTE | 2018-10-21 15:06 | Geriatric Progress Note ---
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 years (4) History of coronary artery stent placement (5) Cardiomyopathy (6) Hypertension (7) Lupus (systemic lupus erythematosus) (8) Osteoarthritis (9) Status post cataract extraction and insertion of intraocular lens of left eye (10) Status post cataract extraction and insertion of intraocular lens of right eye (11) Age-related macular degeneration (12) Hearing loss (13) Hypothyroidism (14) Depressed affect (15) Hallucinations, unspecified (16) Sleep disorder (17) Frequent falls (18) UTI (urinary tract infection) (19) Altered mental status (20) Acute alteration in mental status (21) Hyponatremia (22) Hypokalemia (23) Hypomagnesemia Assessment/Plan Patient improved, now with normal affect, and cooperative. Mild disorientation/delusion - still unclear if metabolic, anatomic or associated meds. However, easily directable. Electrolyte abnormalities, Supplemented, recheck. Discussed with son in detail, agreeable to d/c to rehab for strengthening further medication titration. Discussed with discharge planning for possible d/c tomorrow. Discussed with: patient, family, hospital staff Subjective Interval Events Patient alert, today, smiling, no c/o of "dying". Admits to feeling better. Some confused responses reflecting element of disorientation, but reports date is "October 19, 2018", identifies location as "[place]", although she was under the impression she was in [facility]. Staff notes moderate intake, after refusing intake yesterday. Refused meds last pm, now taking today. Urine returned with ESBL E coli resistant to Ceftriaxone, d/c and placed on oral Macrodantin. Repeat labs with decreased Na, K, but not as abnormal as yesterday's values. Na , K supplementation ordered. Will liberalize Na in diet. Constitutional: Denies: chills, pain, sweats, fever Respiratory: Denies: cough, shortness of breath Cardiovascular: Denies: chest pain, palpitations Gastrointestinal/Abdominal: Denies: abdominal pain Genitourinary: Denies: dysuria Geriatric Geriatric Last 24 Hour Vital Signs Date Time Temp Pulse Resp B/P (MAP) Pulse Ox O2 Delivery O2 Flow Rate FiO2 10/21/18 12:00 99.6 89 17 141/80 (100) 96 8/9/19 09:00 Room Air 10/21/18 08:00 97.4 87 18 123/62 (82) 95 10/21/18 04:00 97.4 89 18 122/74 (90) 96 10/21/18 00:03 97.8 99 18 113/66 (82) 96 10/20/18 21:09 Room Air 10/20/18 20:00 98.0 86 18 129/73 (91) 97 10/20/18 16:00 97.3 92 18 120/71 (87) 96 Intake and Output 10/20/18 10/21/18 19:00 07:00 Intake Total 375 ml Output Total 300 ml Balance 75 ml IV Total 375 ml Output Urine Total 300 ml # Voids 1 2 # Bowel Movements 1 Laboratory Tests Test 10/20/18 16:05 10/21/18 01:58 10/21/18 05:20 Sodium Level 129 MMOL/L (136-145) L 128 MMOL/L (136-145) L Potassium Level 3.1 MMOL/L (3.5-5.1) L 3.1 MMOL/L (3.5-5.1) L Chloride Level 94 MMOL/L (98-107) L 94 MMOL/L (98-107) L Carbon Dioxide Level 24 MMOL/L (21-32) 26 MMOL/L (21-32) Anion Gap 11 mmol/L (5-15) 8 mmol/L (5-15) Blood Urea Nitrogen 6 mg/dL (7-18) L 5 mg/dL (7-18) L Creatinine 0.7 MG/DL (0.55-1.30) 0.8 MG/DL (0.55-1.30) Estimat Glomerular Filtration Rate mL/min (>60) mL/min (>60) Glucose Level 130 MG/DL (74-106) H 97 MG/DL (74-106) Calcium Level 8.5 MG/DL (8.5-10.1) 8.8 MG/DL (8.5-10.1) Urine Random Sodium 49 mmol/L (20-110) Urine Creatinine 60.0 MG/DL (30.0-125.0) White Blood Count 12.9 K/UL (4.8-10.8) H Red Blood Count 4.43 M/UL (4.20-5.40) Hemoglobin 15.3 G/DL (12.0-16.0) Hematocrit 42.4 % (37.0-47.0) Mean Corpuscular Volume 96 FL (80-99) Mean Corpuscular Hemoglobin 34.5 PG (27.0-31.0) H Mean Corpuscular Hemoglobin Concent 36.0 G/DL (32.0-36.0) Red Cell Distribution Width 10.0 % (11.6-14.8) L Platelet Count 187 K/UL (150-450) Mean Platelet Volume 5.2 FL (6.5-10.1) L Neutrophils (%) (Auto) 83.9 % (45.0-75.0) H Lymphocytes (%) (Auto) 7.4 % (20.0-45.0) L Monocytes (%) (Auto) 6.0 % (1.0-10.0) Eosinophils (%) (Auto) 2.0 % (0.0-3.0) Basophils (%) (Auto) 0.7 % (0.0-2.0) Current Medications Medications (Trade) Dose Ordered Sig/Mansi Route PRN Reason Start Time Stop Time Status Last Admin Dose Admin Donepezil HCl (Aricept) 10 mg QHS ORAL 10/18/18 21:00 11/17/18 20:59 10/19/18 20:39 Duloxetine HCl (Cymbalta) 20 mg DAILY ORAL 10/19/18 09:00 11/18/18 08:59 10/21/18 09:21 Escitalopram Oxalate (Lexapro) 5 mg DAILY ORAL 10/19/18 09:00 11/18/18 08:59 10/21/18 09:21 Levothyroxine Sodium (Synthroid) 75 mcg DAILY@0630 ORAL 10/21/18 06:30 11/20/18 06:29 10/21/18 06:00 Memantine (Namenda) 5 mg BID ORAL 10/19/18 09:00 11/17/18 17:59 10/21/18 09:21 Nitrofurantoin (Macrobid) 100 mg EVERY 12 HOURS ORAL 10/21/18 21:00 11/20/18 20:59 Pantoprazole (Protonix) 40 mg DAILY ORAL 10/19/18 09:00 11/18/18 08:59 10/21/18 09:21 Potassium Chloride 100 ml @ 100 mls/hr Q1H IVPB 10/21/18 13:00 10/21/18 14:59 Potassium Chloride 100 ml @ 100 mls/hr Q1H IVPB 10/21/18 17:00 10/21/18 18:59 Sodium Chloride 200 ml @ 100 mls/hr Q2H IV 10/21/18 13:00 10/21/18 14:59 Sodium Chloride 200 ml @ 100 mls/hr Q2H IV 10/21/18 17:00 10/21/18 18:59 Spironolactone (Aldactone) 25 mg DAILY ORAL 10/21/18 09:00 11/20/18 08:59 10/21/18 09:20 Height (Feet): 5 Height (Inches): 2.00 Weight (Pounds): 107 General Appearance: no apparent distress, alert, non-toxic Head: normocephalic, atraumatic Eyes: bilateral anicteric ENT: normal voice Neck: full range of motion, no mass Respiratory: lungs clear Cardiovascular: regular rate, rhythm Gastrointestinal: normal bowel sounds, non tender, soft, no mass, no organomegaly, non-distended Musculoskeletal: no calf tenderness Neurologic: alert, no new focality - RUE paresis, but moves other extremities normally. Stephan Sorenson MD Oct 21, 2018 15:06
--- NOTE | 2018-10-21 15:12 | NUR ---
*-* DISCHARGE PLANNING *-* PATIENT HAS BEEN REFERRED TO: [facility] P: [phone] F: [phone]
--- NOTE | 2018-10-21 15:27 | NUR ---
ENROLLMENT MANAGEMENT DIRECTOR NOTES PT ACCEPTED TO [facility] ROOM 122 BED A. NURSE TO CALL REPORT TO [phone]. PRIMARY NURSE TO CALL [facility] WHEN DISCHARGE ORDER IS RECEIVED ON 10/22/18.
--- NOTE | 2018-10-21 15:29 | NUR ---
RD ASSESSMENT & RECOMMENDATIONS SEE CARE ACTIVITY FOR COMPLETE ASSESSMENT DAILY ESTIMATED NEEDS: Needs based on wt loss/ 48kg 28-33 kcals/kg [id number] total kcals 1-1.5 g protein/kg 48-72 g total protein 25-30 mL/kg 0872-3390 total fluid mLs NUTRITION DIAGNOSIS: Unintentional wt loss R/T poor appetite as evidenced by pt reports significant wt loss of 34lbs/24.6% in <7-8 months, currently w/ poor PO intake. CURRENT DIET:KEN, mech soft chopped PO DIET RECOMMENDATIONS: Liberalized REGULAR diet w/ poor PO intake(texture per INSECTICIDE MAKER or as tolerated) ADDITIONAL RECOMMENDATIONS: * Calibrated bedscale wt for accurate CBW * Weekly wt monitoring given possible h/o significant wt loss * Consider appetite stimulant- admitted w/ poor PO, cont w/ poor PO * Soymilk w/ breakfast, Snacks BID in b/w meals (pt is lactose intolerant, does not want any dairy products nor Ensure) * MVI x 1 as supplement
[2018-10-21 16:00] VITALS: BP 130/68
--- NOTE | 2018-10-21 19:40 | NUR ---
HAND-OFF: Report given to DICK Mitchell.
--- NOTE | 2018-10-21 19:42 | NUR ---
NURSE NOTES: received report from DICK Henderson. patient in bed. alert. oriented. verbally responsive. no respiratory distress on room air. no c/o pain at this time. RT sided blindness, and right sided hard of hearing. Isolation precautions for esbl of urine. skin intact. IV on LAC20 saline lock intact, running potassium. fall risk precautions implemented. bed, locked in the lowest position, side rails up x2, bed alarm on. call light within reach. will continue to provide plan of care.
[2018-10-21 20:00] VITALS: BP 145/73
[2018-10-21] MEDS: Donepezil 10mg tab ORAL SCH (20:05)
[2018-10-22] VITALS: BP 109/66
[2018-10-22 04:00] VITALS: BP 115/96
[2018-10-22 06:01] LABS: HEMATOCRIT 45.3 % (37.0-47.0); HEMOGLOBIN 16.5 G/DL (12.0-16.0); MEAN CORPUSCULAR VOLUME 95 FL (80-99); PLATELET COUNT 201 K/UL (150-450); RED BLOOD COUNT 4.76 M/UL (4.20-5.40)
[2018-10-22 06:03] LABS: WHITE BLOOD COUNT 24.9 K/UL (4.8-10.8)
--- NOTE | 2018-10-22 06:10 | NUR ---
NURSE NOTES: Paged Dr Stephan Sorenson to inform him of patient critical lab value WBCs 8/10 at 24.9 , grossly elevated from previous day 8/9 at 12.9 WBCs. Awaiting response.
--- NOTE | 2018-10-22 06:40 | NUR ---
NURSE NOTES: Dr Stephan Sorenson returned call regarding elevated WBCs and gave orders for 2 sets of blood cultures, straight cath for UA and C& S
[2018-10-22 06:50] LABS: ALANINE AMINOTRANSFERASE 21 U/L (12-78); ALBUMIN 3.3 G/DL (3.4-5.0); ALBUMIN/GLOBULIN RATIO 0.8 (1.0-2.7); ALKALINE PHOSPHATASE 84 U/L (46-116); ANION GAP 11 mmol/L (5-15); ASPARTATE AMINO TRANSFERASE 26 U/L (15-37); BILIRUBIN,TOTAL 1.6 MG/DL (0.2-1.0); BLOOD UREA NITROGEN 5 mg/dL (7-18); CALCIUM 9.2 MG/DL (8.5-10.1); CARBON DIOXIDE 24 MMOL/L (21-32); CHLORIDE 91 MMOL/L (98-107); CREATININE 0.7 MG/DL (0.55-1.30); POTASSIUM 3.1 MMOL/L (3.5-5.1); SODIUM 126 MMOL/L (136-145)
--- NOTE | 2018-10-22 07:17 | NUR ---
HAND-OFF: Report given to DICK Henderson.
--- NOTE | 2018-10-22 07:20 | NUR ---
NURSE NOTES received report from DICK Mitchell. patient in bed. alert. oriented. verbally responsive. no respiratory distress noted on room air. no pain at this time. contact isolation. PPE at all times. IV on LAC 20g. intact. bed in the lowest position. call light within reach. alarm on. abnormal lab result with Na 126. K 301 this morning. will continue to provide plan of care.
[2018-10-22 07:47] LABS: BILIRUBIN,DIRECT 0.3 MG/DL (0.0-0.3)
[2018-10-22 08:00] VITALS: BP 108/67
--- NOTE | 2018-10-22 09:00 | NUR ---
NURSE NOTES: called Dr Sorenson and left message to tape keller operator regarding abnormal lab result. waiting call back.
[2018-10-22] MEDS: Spironolactone 25mg tab ORAL SCH (10:15)
[2018-10-22] MEDS: Memantine 5 MG TAB ORAL SCH (10:15)
--- NOTE | 2018-10-22 10:53 | NUR ---
PT NOTE: Pt unable to participate in PT treatment session. Spoke with nurse which advised to hold off on PT due to poor pt status. Will attempt PT session at a later time.
[2018-10-22 12:00] VITALS: BP 115/62
--- NOTE | 2018-10-22 12:29 | Infectious Diseases Prog Note ---
Assessment/Plan Assessment/Plan Full consult dictated: A) 1) esbl e.coli uti, leukocytosis, ? sepsis, hyponatremia 2) pmh noted 3) allergies - nkda P) 1) meropenem 2) check cultures, labs and chest x-ray 3) d/w Dr. Sorenson 4) thank you Subjective Allergies: Coded Allergies: ACETAMINOPHEN (Verified Allergy, Unknown, 10/18/18) CIPROFLOXACIN (Verified Allergy, Unknown, 10/18/18) CODEINE (Verified Allergy, Unknown, 10/18/18) IBUPROFEN (Verified Allergy, Unknown, 10/18/18) IODINE (Verified Allergy, Unknown, 10/18/18) NAPROXEN (Verified Allergy, Unknown, 10/18/18) OXYCODONE (Verified Allergy, Unknown, 10/18/18) PENICILLINS (Verified Allergy, Unknown, 10/18/18) Shrimp (Verified Allergy, Unknown, 10/18/18) Uncoded Allergies: BRUSSEL SPROUTS (Allergy, Unknown, 10/18/18) LACTOSE INTOLERANT (Allergy, Unknown, 10/18/18) PLASTIC TAPE (Allergy, Unknown, 10/18/18) lactose intolerance (Allergy, Unknown, 10/18/18) Objective Vital Signs Last 24 Hour Vital Signs Date Time Temp Pulse Resp B/P (MAP) Pulse Ox O2 Delivery O2 Flow Rate FiO2 10/22/18 08:00 99.0 104 20 108/67 (81) 92 10/22/18 04:00 97.8 65 18 115/96 (102) 98 10/22/18 00:00 97.6 60 20 109/66 (80) 98 10/21/18 21:00 Room Air 10/21/18 20:00 97.9 83 18 145/73 (97) 96 10/21/18 16:00 98.8 91 18 130/68 (88) 94 Height (Feet): 5 Height (Inches): 2.00 Weight (Pounds): 107 Laboratory Tests Test 10/22/18 05:27 White Blood Count 24.9 K/UL (4.8-10.8) #*H Red Blood Count 4.76 M/UL (4.20-5.40) Hemoglobin 16.5 G/DL (12.0-16.0) H Hematocrit 45.3 % (37.0-47.0) Mean Corpuscular Volume 95 FL (80-99) Mean Corpuscular Hemoglobin 34.8 PG (27.0-31.0) H Mean Corpuscular Hemoglobin Concent 36.5 G/DL (32.0-36.0) H Red Cell Distribution Width 10.0 % (11.6-14.8) L Platelet Count 201 K/UL (150-450) Mean Platelet Volume 5.4 FL (6.5-10.1) L Neutrophils (%) (Auto) % (45.0-75.0) Lymphocytes (%) (Auto) % (20.0-45.0) Monocytes (%) (Auto) % (1.0-10.0) Eosinophils (%) (Auto) % (0.0-3.0) Basophils (%) (Auto) % (0.0-2.0) Differential Total Cells Counted 100 Neutrophils % (Manual) 82 % (45-75) H Lymphocytes % (Manual) 4 % (20-45) L Monocytes % (Manual) 2 % (1-10) Eosinophils % (Manual) 1 % (0-3) Basophils % (Manual) 0 % (0-2) Band Neutrophils 11 % (0-8) H Platelet Estimate Adequate Platelet Morphology Normal Red Blood Cell Morphology Normal Sodium Level 126 MMOL/L (136-145) L Potassium Level 3.1 MMOL/L (3.5-5.1) L Chloride Level 91 MMOL/L (98-107) L Carbon Dioxide Level 24 MMOL/L (21-32) Anion Gap 11 mmol/L (5-15) Blood Urea Nitrogen 5 mg/dL (7-18) L Creatinine 0.7 MG/DL (0.55-1.30) Estimat Glomerular Filtration Rate mL/min (>60) Glucose Level 99 MG/DL (74-106) Calcium Level 9.2 MG/DL (8.5-10.1) Magnesium Level 1.6 MG/DL (1.8-2.4) L Total Bilirubin 1.6 MG/DL (0.2-1.0) H Direct Bilirubin 0.3 MG/DL (0.0-0.3) Aspartate Amino Transf (AST/SGOT) 26 U/L (15-37) Alanine Aminotransferase (ALT/SGPT) 21 U/L (12-78) Alkaline Phosphatase 84 U/L (46-116) Total Protein 7.5 G/DL (6.4-8.2) Albumin 3.3 G/DL (3.4-5.0) L Globulin 4.2 g/dL Albumin/Globulin Ratio 0.8 (1.0-2.7) L Current Medications Medications (Trade) Dose Ordered Sig/Mansi Route PRN Reason Start Time Stop Time Status Last Admin Dose Admin Donepezil HCl (Aricept) 10 mg QHS ORAL 10/18/18 21:00 11/17/18 20:59 10/21/18 20:05 Duloxetine HCl (Cymbalta) 20 mg DAILY ORAL 10/19/18 09:00 11/18/18 08:59 10/22/18 10:15 Escitalopram Oxalate (Lexapro) 5 mg DAILY ORAL 10/19/18 09:00 11/18/18 08:59 10/22/18 10:15 Levothyroxine Sodium (Synthroid) 75 mcg DAILY@0630 ORAL 10/21/18 06:30 11/20/18 06:29 10/22/18 05:59 Memantine (Namenda) 5 mg BID ORAL 10/19/18 09:00 11/17/18 17:59 10/22/18 10:15 Meropenem 500 mg/ Sodium Chloride 50 ml @ 100 mls/hr EVERY 8 HOURS IVPB 10/22/18 14:00 10/27/18 13:59 UNV Pantoprazole (Protonix) 40 mg DAILY ORAL 10/19/18 09:00 11/18/18 08:59 10/22/18 10:15 Potassium Chloride 100 ml @ 100 mls/hr Q1H IVPB 10/22/18 09:30 10/22/18 13:29 10/22/18 12:08 Sodium Chloride 1,000 ml @ 100 mls/hr Q10H IV 10/22/18 09:30 11/21/18 09:29 10/22/18 10:15 Spironolactone (Aldactone) 25 mg DAILY ORAL 10/21/18 09:00 11/20/18 08:59 10/22/18 10:15 Na Huang MD Oct 22, 2018 12:29
--- NOTE | 2018-10-22 12:54 | Diagnostic Imaging Report ---
EXAM: XR Chest, 1 View CLINICAL HISTORY: INFECT TECHNIQUE: Frontal view of the chest. COMPARISON: Chest x-ray 10-18-18 1123 FINDINGS: Lungs: Hypoventilatory lungs. Slight increased interstitial prominence. No focal consolidation. Pleural space: Unremarkable. No pneumothorax. Heart: Unremarkable. No cardiomegaly. Mediastinum: Unremarkable. Bones/joints: Unremarkable. Vasculature: Atherosclerotic vascular disease. IMPRESSION: Slight increased interstitial prominence. No focal consolidation.
[2018-10-22 14:39] LABS: APPEARANCE,URINE CLEAR; BILIRUBIN, URINE NEGATIVE (NEGATIVE); GLUCOSE, URINE (UA) NEGATIVE (NEGATIVE); KETONES,URINE 2+ (NEGATIVE); LEUKOCYTE ESTERASE ,URINE NEGATIVE (NEGATIVE); NITRITE,URINE NEGATIVE (NEGATIVE); PH,URINE 7 (4.5-8.0); PROTEIN,URINE 1+ (NEGATIVE); UROBILINOGEN,URINE NORMAL MG/DL (0.0-1.0)
[2018-10-22 14:49] LABS: COLOR,URINE YELLOW
[2018-10-22 16:00] VITALS: BP 114/65
--- NOTE | 2018-10-22 17:00 | Geriatric Progress Note ---
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 years (4) History of coronary artery stent placement (5) Cardiomyopathy (6) Hypertension (7) Lupus (systemic lupus erythematosus) (8) Osteoarthritis (9) Status post cataract extraction and insertion of intraocular lens of left eye (10) Status post cataract extraction and insertion of intraocular lens of right eye (11) Age-related macular degeneration (12) Hearing loss (13) Hypothyroidism (14) Depressed affect (15) Hallucinations, unspecified (16) Sleep disorder (17) Frequent falls (18) UTI (urinary tract infection) (19) Altered mental status (20) Acute alteration in mental status (21) Hyponatremia (22) Hypokalemia (23) Hypomagnesemia (24) Leukocytosis Assessment/Plan Marked leukocytosis with left shift, ? sepsis, ? source. Discussed with Dr. Huang, placed on meropenem. Given c/o lower abdominal pain, will have staff check baldder scan, and obtain MRI abdomen and pelvis. C&S pending, but repeat urinalysis unremarkable. Given fci use of Prednisone, will resume. Since bp OK will not start stress doses. Supplement electrolytes, d/c spironolactone, memantine, lexapro. May need to later use Wellbutrin instead of SSRI given hyponatremia. Delay d/c to SNF pending stabilization. Discussed in detail with son. Discussed with: patient, family, hospital staff Subjective Interval Events Patient once again weaker, c/o wanting to , because she is wasted. For first time patient patient now reports some lower abdominal discomfort. Once again refusing to eat. This am wbc up to 24K. Once again sodium and K down. BUN/Cr, other labs remain in same range. Reviewed further history with son. Cardiac stents placed in ~2005, but MRIs done in recent years without adverse effect. History of iodine allergy with rash. Lupus under control, had been taking Prednisone 5mg daily, which was not on admission drug list. Constitutional: Reports: pain - lower abdominal; Denies: chills, sweats, fever Respiratory: Denies: shortness of breath Cardiovascular: Denies: chest pain Gastrointestinal/Abdominal: Denies: constipation, diarrhea Geriatric Geriatric Last 24 Hour Vital Signs Date Time Temp Pulse Resp B/P (MAP) Pulse Ox O2 Delivery O2 Flow Rate FiO2 10/22/18 16:00 97.4 65 18 114/65 (81) 96 10/22/18 12:00 96.1 91 16 115/62 (79) 97 10/22/18 09:00 Room Air 10/22/18 08:00 99.0 104 20 108/67 (81) 92 10/22/18 04:00 97.8 65 18 115/96 (102) 98 10/22/18 00:00 97.6 60 20 109/66 (80) 98 10/21/18 21:00 Room Air 10/21/18 20:00 97.9 83 18 145/73 (97) 96 Intake and Output 10/21/18 10/22/18 18:59 06:59 Intake Total 710 ml Output Total 200 ml Balance 710 ml -200 ml IV Total 110 ml Other 600 ml Output Urine Total 200 ml # Voids 3 # Bowel Movements 2 Laboratory Tests Test 10/22/18 05:27 10/22/18 12:50 10/22/18 13:35 White Blood Count 24.9 K/UL (4.8-10.8) #*H Red Blood Count 4.76 M/UL (4.20-5.40) Hemoglobin 16.5 G/DL (12.0-16.0) H Hematocrit 45.3 % (37.0-47.0) Mean Corpuscular Volume 95 FL (80-99) Mean Corpuscular Hemoglobin 34.8 PG (27.0-31.0) H Mean Corpuscular Hemoglobin Concent 36.5 G/DL (32.0-36.0) H Red Cell Distribution Width 10.0 % (11.6-14.8) L Platelet Count 201 K/UL (150-450) Mean Platelet Volume 5.4 FL (6.5-10.1) L Neutrophils (%) (Auto) % (45.0-75.0) Lymphocytes (%) (Auto) % (20.0-45.0) Monocytes (%) (Auto) % (1.0-10.0) Eosinophils (%) (Auto) % (0.0-3.0) Basophils (%) (Auto) % (0.0-2.0) Differential Total Cells Counted 100 Neutrophils % (Manual) 82 % (45-75) H Lymphocytes % (Manual) 4 % (20-45) L Monocytes % (Manual) 2 % (1-10) Eosinophils % (Manual) 1 % (0-3) Basophils % (Manual) 0 % (0-2) Band Neutrophils 11 % (0-8) H Platelet Estimate Adequate Platelet Morphology Normal Red Blood Cell Morphology Normal Sodium Level 126 MMOL/L (136-145) L Potassium Level 3.1 MMOL/L (3.5-5.1) L Chloride Level 91 MMOL/L (98-107) L Carbon Dioxide Level 24 MMOL/L (21-32) Anion Gap 11 mmol/L (5-15) Blood Urea Nitrogen 5 mg/dL (7-18) L Creatinine 0.7 MG/DL (0.55-1.30) Estimat Glomerular Filtration Rate mL/min (>60) Glucose Level 99 MG/DL (74-106) Calcium Level 9.2 MG/DL (8.5-10.1) Magnesium Level 1.6 MG/DL (1.8-2.4) L Total Bilirubin 1.6 MG/DL (0.2-1.0) H Direct Bilirubin 0.3 MG/DL (0.0-0.3) Aspartate Amino Transf (AST/SGOT) 26 U/L (15-37) Alanine Aminotransferase (ALT/SGPT) 21 U/L (12-78) Alkaline Phosphatase 84 U/L (46-116) Total Protein 7.5 G/DL (6.4-8.2) Albumin 3.3 G/DL (3.4-5.0) L Globulin 4.2 g/dL Albumin/Globulin Ratio 0.8 (1.0-2.7) L Lactic Acid Level 1.30 mmol/L (0.4-2.0) Urine Color Yellow Urine Appearance Clear Urine pH 7 (4.5-8.0) Urine Specific [place] 1.005 (1.005-1.035) Urine Protein 1+ (NEGATIVE) H Urine Glucose (UA) Negative (NEGATIVE) Urine Ketones 2+ (NEGATIVE) H Urine Blood 1+ (NEGATIVE) H Urine Nitrite Negative (NEGATIVE) Urine Bilirubin Negative (NEGATIVE) Urine Urobilinogen Normal MG/DL (0.0-1.0) Urine Leukocyte Esterase Negative (NEGATIVE) Urine RBC 0-2 /HPF (0 - 2) Urine WBC 0 /HPF (0 - 2) Urine Squamous Epithelial Cells None /LPF (NONE/OCC) Urine Bacteria None /HPF (NONE) Current Medications Medications (Trade) Dose Ordered Sig/Mansi Route PRN Reason Start Time Stop Time Status Last Admin Dose Admin Dextrose/ Electrolytes 1,000 ml @ 75 mls/hr [id number] IV 10/22/18 17:00 11/21/18 16:59 Donepezil HCl (Aricept) 10 mg QHS ORAL 10/18/18 21:00 11/17/18 20:59 10/21/18 20:05 Duloxetine HCl (Cymbalta) 20 mg DAILY ORAL 10/19/18 09:00 11/18/18 08:59 10/22/18 10:15 Levothyroxine Sodium (Synthroid) 75 mcg DAILY@0630 ORAL 10/21/18 06:30 11/20/18 06:29 10/22/18 05:59 Meropenem 500 mg/ Sodium Chloride 50 ml @ 100 mls/hr Q12HR@0200,1400 IVPB 10/22/18 14:00 10/27/18 13:59 10/22/18 15:01 Pantoprazole (Protonix) 40 mg DAILY ORAL 10/19/18 09:00 11/18/18 08:59 10/22/18 10:15 Prednisone (predniSONE) 5 mg DAILY ORAL 10/23/18 09:00 11/22/18 08:59 UNV Sodium Chloride 1,000 ml @ 100 mls/hr Q10H IV 10/22/18 09:30 11/21/18 09:29 10/22/18 10:15 Height (Feet): 5 Height (Inches): 2.00 Weight (Pounds): 107 General Appearance: alert, other - dysphoric again Head: normocephalic Eyes: bilateral anicteric ENT: normal voice Neck: full range of motion, no mass Respiratory: lungs clear Cardiovascular: regular rate, rhythm Gastrointestinal: normal bowel sounds, soft, no mass, no organomegaly, tenderness - mild terness over suprapubic area. Musculoskeletal: no calf tenderness Edema: no edema noted Generalized Neurologic: no new focality Stephan Sorenson MD Oct 22, 2018 17:00
--- NOTE | 2018-10-22 17:00 | NUR ---
NURSE NOTES: patient c/o pain on IV site and asked remove it. offered another new IV insertion but patient refused at this time. RN explained risks and benefits. patient said would think about to get one later.
[2018-10-22] MEDS: D5NS w/KCl 40mEq 1000ml 1,000 ML IV SCH (17:55)
--- NOTE | 2018-10-22 19:32 | NUR ---
HAND-OFF: Report given to DICK Mitchell.
--- NOTE | 2018-10-22 19:33 | NUR ---
NURSE NOTES patient in bed. alert. oriented. verbally responsive, resting at this time no respiratory distress noted on room air. no pain at this time. bed locked in lowest position, side rails x2, bed alarm on, contact isolation. PPE at all times. IV on LAC 20g. intact. bed in the lowest position. call light within reach. alarm on. awill continue to provide plan of care.
[2018-10-22 20:00] VITALS: BP 127/65
[2018-10-22] MEDS: Donepezil 10mg tab ORAL SCH (22:05)
[2018-10-23] VITALS: BP 117/60
[2018-10-23] MEDS: D5NS w/KCl 40mEq 1000ml 1,000 ML IV SCH ×2 (06:43→20:47)
--- NOTE | 2018-10-23 07:32 | NUR ---
NURSE NOTES: received report from DICK Mitchell. patient in bed. sleeping. no respiratory distress noted on room air. IV on LFA 22g. ruinning [id number] kcl [id number], contact isolation. PPE at all times. bed in the lowest position. call light within reach. alarm on. will continue to provide plan of care.
--- NOTE | 2018-10-23 07:45 | NUR ---
HAND-OFF: Report given to DICK Henderson
[2018-10-23 08:00] VITALS: BP 149/72
[2018-10-23 08:04] LABS: BASOPHILS % (AUTO) 0.5 % (0.0-2.0); EOSINOPHILS % (AUTO) 5.5 % (0.0-3.0); HEMATOCRIT 36.9 % (37.0-47.0); HEMOGLOBIN 13.5 G/DL (12.0-16.0); LYMPHOCYTES % (AUTO) 8.4 % (20.0-45.0); MEAN CORPUSCULAR VOLUME 96 FL (80-99); MONOCYTES % (AUTO) 4.3 % (1.0-10.0); NEUTROPHILS % (AUTO) 81.3 % (45.0-75.0); PLATELET COUNT 190 K/UL (150-450); RED BLOOD COUNT 3.85 M/UL (4.20-5.40); RED CELL DISTRIBUTION WIDTH 10.1 % (11.6-14.8); WHITE BLOOD COUNT 12.2 K/UL (4.8-10.8)
[2018-10-23 08:30] LABS: ALANINE AMINOTRANSFERASE 17 U/L (12-78); ALBUMIN 2.6 G/DL (3.4-5.0); ALBUMIN/GLOBULIN RATIO 0.7 (1.0-2.7); ALKALINE PHOSPHATASE 69 U/L (46-116); ANION GAP 8 mmol/L (5-15); ASPARTATE AMINO TRANSFERASE 21 U/L (15-37); BLOOD UREA NITROGEN 6 mg/dL (7-18); CALCIUM 8.9 MG/DL (8.5-10.1); CARBON DIOXIDE 26 MMOL/L (21-32); CHLORIDE 96 MMOL/L (98-107); CREATININE 0.6 MG/DL (0.55-1.30); POTASSIUM 3.4 MMOL/L (3.5-5.1); SODIUM 129 MMOL/L (136-145)
--- NOTE | 2018-10-23 09:30 | NUR ---
NURSE NOTES: seen by PT. not able to assess the patient d/t sleeping. PT said come back and see the patient in the afternoon.
[2018-10-23 12:00] VITALS: BP 126/67
--- NOTE | 2018-10-23 13:10 | NUR ---
PT NOTE: Pt was asleep and unable to participate in PT treatment session today. Spoke with nurse of pt status. Will attempt PT at a later time. Nurse call light within easy reach.
[2018-10-23 16:00] VITALS: BP 128/76
--- NOTE | 2018-10-23 17:29 | Infectious Diseases Prog Note ---
Assessment/Plan Assessment/Plan Full consult dictated: A) 1) esbl e.coli uti, leukocytosis, ? sepsis, hyponatremia, lgt x 1 2) pmh noted 3) allergies - nkda P) 1) meropenem - day # 2 2) check cultures, labs, MRI abdomen ordered 3) d/w Dr. Sorenson 4) will f/u Subjective Constitutional: Denies: fever HEENT: Denies: congestion Respiratory: Denies: shortness of breath Cardiovascular: Denies: chest pain Gastrointestinal/Abdominal: Denies: nausea, vomiting Allergies: Coded Allergies: ACETAMINOPHEN (Verified Allergy, Unknown, 10/18/18) CIPROFLOXACIN (Verified Allergy, Unknown, 10/18/18) CODEINE (Verified Allergy, Unknown, 10/18/18) IBUPROFEN (Verified Allergy, Unknown, 10/18/18) IODINE (Verified Allergy, Unknown, 10/18/18) NAPROXEN (Verified Allergy, Unknown, 10/18/18) OXYCODONE (Verified Allergy, Unknown, 10/18/18) PENICILLINS (Verified Allergy, Unknown, 10/18/18) Shrimp (Verified Allergy, Unknown, 10/18/18) Uncoded Allergies: BRUSSEL SPROUTS (Allergy, Unknown, 10/18/18) LACTOSE INTOLERANT (Allergy, Unknown, 10/18/18) PLASTIC TAPE (Allergy, Unknown, 10/18/18) lactose intolerance (Allergy, Unknown, 10/18/18) Objective Vital Signs Last 24 Hour Vital Signs Date Time Temp Pulse Resp B/P (MAP) Pulse Ox O2 Delivery O2 Flow Rate FiO2 10/23/18 12:00 97.9 77 14 126/67 (86) 96 10/23/18 09:00 Room Air 10/23/18 08:00 97.3 79 16 149/72 (97) 96 10/23/18 00:00 96.6 82 17 117/60 (79) 98 10/22/18 21:00 Room Air 10/22/18 20:00 98.0 86 17 127/65 (85) 93 Height (Feet): 5 Height (Inches): 2.00 Weight (Pounds): 107 General Appearance: no acute distress HEENT: normocephalic, atraumatic, anicteric Respiratory/Chest: lungs clear, normal breath sounds, no respiratory distress, no accessory muscle use Cardiovascular: normal rate, regular rhythm, no gallop/murmur Abdomen: normal bowel sounds, soft, non tender, no organomegaly Laboratory Tests Test 10/23/18 05:20 White Blood Count 12.2 K/UL (4.8-10.8) #H Red Blood Count 3.85 M/UL (4.20-5.40) L Hemoglobin 13.5 G/DL (12.0-16.0) Hematocrit 36.9 % (37.0-47.0) L Mean Corpuscular Volume 96 FL (80-99) Mean Corpuscular Hemoglobin 35.2 PG (27.0-31.0) H Mean Corpuscular Hemoglobin Concent 36.7 G/DL (32.0-36.0) H Red Cell Distribution Width 10.1 % (11.6-14.8) L Platelet Count 190 K/UL (150-450) Mean Platelet Volume 5.8 FL (6.5-10.1) L Neutrophils (%) (Auto) 81.3 % (45.0-75.0) H Lymphocytes (%) (Auto) 8.4 % (20.0-45.0) L Monocytes (%) (Auto) 4.3 % (1.0-10.0) Eosinophils (%) (Auto) 5.5 % (0.0-3.0) H Basophils (%) (Auto) 0.5 % (0.0-2.0) Sodium Level 129 MMOL/L (136-145) L Potassium Level 3.4 MMOL/L (3.5-5.1) L Chloride Level 96 MMOL/L (98-107) L Carbon Dioxide Level 26 MMOL/L (21-32) Anion Gap 8 mmol/L (5-15) Blood Urea Nitrogen 6 mg/dL (7-18) L Creatinine 0.6 MG/DL (0.55-1.30) Estimat Glomerular Filtration Rate mL/min (>60) Glucose Level 86 MG/DL (74-106) Calcium Level 8.9 MG/DL (8.5-10.1) Total Bilirubin 1.0 MG/DL (0.2-1.0) Aspartate Amino Transf (AST/SGOT) 21 U/L (15-37) Alanine Aminotransferase (ALT/SGPT) 17 U/L (12-78) Alkaline Phosphatase 69 U/L (46-116) Total Protein 6.4 G/DL (6.4-8.2) Albumin 2.6 G/DL (3.4-5.0) L Globulin 3.8 g/dL Albumin/Globulin Ratio 0.7 (1.0-2.7) L Current Medications Medications (Trade) Dose Ordered Sig/Mansi Route PRN Reason Start Time Stop Time Status Last Admin Dose Admin Dextrose/ Electrolytes 1,000 ml @ 75 mls/hr [id number] IV 10/22/18 17:00 11/21/18 16:59 10/23/18 06:43 Donepezil HCl (Aricept) 10 mg QHS ORAL 10/18/18 21:00 11/17/18 20:59 10/22/18 22:05 Duloxetine HCl (Cymbalta) 20 mg DAILY ORAL 10/19/18 09:00 11/18/18 08:59 10/23/18 10:05 Levothyroxine Sodium (Synthroid) 75 mcg DAILY@0630 ORAL 10/21/18 06:30 11/20/18 06:29 10/23/18 06:41 Meropenem 500 mg/ Sodium Chloride 50 ml @ 100 mls/hr Q12HR@0200,1400 IVPB 10/22/18 14:00 10/27/18 13:59 10/23/18 14:20 Pantoprazole (Protonix) 40 mg DAILY ORAL 10/19/18 09:00 11/18/18 08:59 10/23/18 10:05 Prednisone (predniSONE) 5 mg DAILY ORAL 10/23/18 09:00 11/22/18 08:59 10/23/18 10:05 Na Huang MD Oct 23, 2018 17:29
--- NOTE | 2018-10-23 17:36 | Geriatric Progress Note ---
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 years (4) History of coronary artery stent placement (5) Cardiomyopathy (6) Hypertension (7) Lupus (systemic lupus erythematosus) (8) Osteoarthritis (9) Status post cataract extraction and insertion of intraocular lens of left eye (10) Status post cataract extraction and insertion of intraocular lens of right eye (11) Age-related macular degeneration (12) Hearing loss (13) Hypothyroidism (14) Depressed affect (15) Hallucinations, unspecified (16) Sleep disorder (17) Frequent falls (18) UTI (urinary tract infection) (19) Altered mental status (20) Acute alteration in mental status (21) Hyponatremia (22) Hypokalemia (23) Hypomagnesemia (24) Leukocytosis Assessment/Plan Generally slightly improved. On Meropenem, pending further C&S, clinical response. Discussed with Dr. Huang. Electrolytes improved. Follow labs. Dysphoria improved again, ? rapid cycling vs. characterologic vs. delirium. Consider Wellbutrin once more stable. Weight loss with anorexia, ? abdominopelvic pathology, awaiting MRI. Mobilize as tolerated. D/c to SNF postponed till more stable. Discussed with: patient, hospital staff Subjective Interval Events Patient more alert today. Reportedly ate better but still poorly. Currently denies all c/o, no suprapubic discomfort. Affect alert, but tending to keep eyes closed. No overt distress. Had normal b.m. per staff. PVR on bladder scan yesterday was 230ml. Labs with wbc back down to 12K, Hct 37%. Na up to 129, K to 3.4. Constitutional: Denies: chills, pain, sweats, fever Respiratory: Denies: shortness of breath Cardiovascular: Denies: chest pain, palpitations Gastrointestinal/Abdominal: Denies: abdominal pain, diarrhea, nausea Geriatric Geriatric Last 24 Hour Vital Signs Date Time Temp Pulse Resp B/P (MAP) Pulse Ox O2 Delivery O2 Flow Rate FiO2 10/23/18 12:00 97.9 77 14 126/67 (86) 96 10/23/18 09:00 Room Air 10/23/18 08:00 97.3 79 16 149/72 (97) 96 10/23/18 00:00 96.6 82 17 117/60 (79) 98 10/22/18 21:00 Room Air 10/22/18 20:00 98.0 86 17 127/65 (85) 93 Intake and Output 10/22/18 10/23/18 18:59 06:59 Intake Total 1800 ml Balance 1800 ml IV Total 1300 ml Other 500 ml Bladder Scan Volume Amount 201-300 ml # Voids 4 # Bowel Movements 1 Laboratory Tests Test 10/23/18 05:20 White Blood Count 12.2 K/UL (4.8-10.8) #H Red Blood Count 3.85 M/UL (4.20-5.40) L Hemoglobin 13.5 G/DL (12.0-16.0) Hematocrit 36.9 % (37.0-47.0) L Mean Corpuscular Volume 96 FL (80-99) Mean Corpuscular Hemoglobin 35.2 PG (27.0-31.0) H Mean Corpuscular Hemoglobin Concent 36.7 G/DL (32.0-36.0) H Red Cell Distribution Width 10.1 % (11.6-14.8) L Platelet Count 190 K/UL (150-450) Mean Platelet Volume 5.8 FL (6.5-10.1) L Neutrophils (%) (Auto) 81.3 % (45.0-75.0) H Lymphocytes (%) (Auto) 8.4 % (20.0-45.0) L Monocytes (%) (Auto) 4.3 % (1.0-10.0) Eosinophils (%) (Auto) 5.5 % (0.0-3.0) H Basophils (%) (Auto) 0.5 % (0.0-2.0) Sodium Level 129 MMOL/L (136-145) L Potassium Level 3.4 MMOL/L (3.5-5.1) L Chloride Level 96 MMOL/L (98-107) L Carbon Dioxide Level 26 MMOL/L (21-32) Anion Gap 8 mmol/L (5-15) Blood Urea Nitrogen 6 mg/dL (7-18) L Creatinine 0.6 MG/DL (0.55-1.30) Estimat Glomerular Filtration Rate mL/min (>60) Glucose Level 86 MG/DL (74-106) Calcium Level 8.9 MG/DL (8.5-10.1) Total Bilirubin 1.0 MG/DL (0.2-1.0) Aspartate Amino Transf (AST/SGOT) 21 U/L (15-37) Alanine Aminotransferase (ALT/SGPT) 17 U/L (12-78) Alkaline Phosphatase 69 U/L (46-116) Total Protein 6.4 G/DL (6.4-8.2) Albumin 2.6 G/DL (3.4-5.0) L Globulin 3.8 g/dL Albumin/Globulin Ratio 0.7 (1.0-2.7) L Current Medications Medications (Trade) Dose Ordered Sig/Mansi Route PRN Reason Start Time Stop Time Status Last Admin Dose Admin Dextrose/ Electrolytes 1,000 ml @ 75 mls/hr [id number] IV 10/22/18 17:00 11/21/18 16:59 10/23/18 06:43 Donepezil HCl (Aricept) 10 mg QHS ORAL 10/18/18 21:00 11/17/18 20:59 10/22/18 22:05 Duloxetine HCl (Cymbalta) 20 mg DAILY ORAL 10/19/18 09:00 11/18/18 08:59 10/23/18 10:05 Levothyroxine Sodium (Synthroid) 75 mcg DAILY@0630 ORAL 10/21/18 06:30 11/20/18 06:29 10/23/18 06:41 Meropenem 500 mg/ Sodium Chloride 50 ml @ 100 mls/hr Q12HR@0200,1400 IVPB 10/22/18 14:00 10/27/18 13:59 10/23/18 14:20 Pantoprazole (Protonix) 40 mg DAILY ORAL 10/19/18 09:00 11/18/18 08:59 10/23/18 10:05 Prednisone (predniSONE) 5 mg DAILY ORAL 10/23/18 09:00 11/22/18 08:59 10/23/18 10:05 Height (Feet): 5 Height (Inches): 2.00 Weight (Pounds): 107 General Appearance: no apparent distress, alert - but flat affect Head: normocephalic Eyes: bilateral anicteric ENT: normal voice Neck: full range of motion, no mass Respiratory: lungs clear Cardiovascular: regular rate, rhythm Gastrointestinal: normal bowel sounds, non tender, soft, no mass, no organomegaly, non-distended Musculoskeletal: no calf tenderness Edema: no edema noted Generalized Neurologic: no new focality, other - motor strength unchanged. Identifies Martha, date as November 21, 2018. Stephan Sorenson MD Oct 23, 2018 17:36
--- NOTE | 2018-10-23 19:13 | NUR ---
HAND-OFF: Report given to DICK Mitchell.:
--- NOTE | 2018-10-23 19:32 | NUR ---
NURSE NOTES patient in bed. alert. oriented. verbally responsive, resting at this time no respiratory distress noted on room air. no pain at this time. bed locked in lowest position, side rails x2, bed alarm on, contact isolation. PPE at all times. IV on LAC 20g. intact. bed in the lowest position. call light within reach. alarm on. will continue to provide plan of care.
[2018-10-23 20:00] VITALS: BP 135/71
[2018-10-23] MEDS: Donepezil 10mg tab ORAL SCH ×2 (20:51→21:00)
--- NOTE | 2018-10-23 22:15 | Consultation ---
DATE OF CONSULTATION: 10/23/2018 INFECTIOUS DISEASE CONSULTATION CONSULTING PHYSICIAN: Na Huang M.D. ATTENDING PHYSICIAN: Stephan Sorenson M.D. REFERRING PHYSICIAN: Stephan Sorenson M.D. The patient also was seen yesterday; however, official date of consultation is 10/23/2018. REASON FOR CONSULTATION: ESBL E. coli UTI, possible sepsis, elevated white count. CHIEF COMPLAINT: The patient's chief complaint coming into the hospital is recurrent urinary tract infection, altered mental status. HISTORY OF PRESENT ILLNESS: This is a very pleasant 88-year-old female who comes in to [facility] with what looks like altered mental status and was noted to have a ESBL E. coli UTI with positive urinalysis and culture. Infectious Disease consultation is requested because of the ESBL organism and also because her white count significantly increased to 24.9. There was concern for sepsis in this patient, especially in view of the UTI and altered mental status. I saw the patient yesterday and started the patient on meropenem that has been adjusted by pharmacy. The patient's white count improved today. Case discussed with Dr. Sorenson and at this time we are also going to get an MRI of the abdomen to make sure there is no underlying pyelonephritis or other process causing leukocytosis. Chest x-ray shows no evidence of pneumonia. Blood cultures are pending. MAR was noted. Notes were noted. Orders and records reviewed. Case was also discussed with the RN. REVIEW OF SYSTEMS: CONSTITUTIONAL: The patient is alert and responsive. She has generalized fatigue. No new focal weakness noted. She has no fevers. HEENT: In communication with the patient, she has no headache or neck pain or neck stiffness. CARDIAC: No chest pain. GASTROINTESTINAL: No nausea, vomiting, abdominal pain, diarrhea. GENITOURINARY: She has no Mcgowan. No CVA tenderness. PULMONARY: No congestion or shortness of breath. No hemoptysis or secretions. SKIN: No rash or itching. EXTREMITIES: No extremity pain. NEUROLOGIC: No seizures. There is no mention of night sweats per the records. She has been hypothermic occasionally with a temperature 96.6, mildly hypothermic. PAST MEDICAL HISTORY: The patient has a past medical history of recurrent urinary tract infection. The patient has history of lupus and/or rheumatoid arthritis and has been on prednisone. She has history of coronary artery disease, mild myocardial infarction. She also has history of hypertension, hypothyroidism, osteoarthritis, decreased visual acuity, GERD, cognitive deficits, CVA, sleep disorder, neuropathic pain. No history of diabetes mentioned. ALLERGIES: She has allergies to the following. She is allergic to acetaminophen, Cipro, codeine, ibuprofen, iodine, lactose intolerant, naproxen. She is also allergic to oxycodone, penicillin, plastic tape. She has tolerated meropenem however. Also, has tolerated cephalosporins. SOCIAL HISTORY: Negative for smoking, alcohol, or drug abuse. FAMILY HISTORY: Noncontributory. There is no mention of exposure to tuberculosis or cancer. MEDICATIONS: Upon reviewing the MAR, the patient is on following medications. She is on prednisone, meropenem, levothyroxine, duloxetine, pantoprazole, and donepezil. Outside medications, she has been on prednisone. She has been on amlodipine, spironolactone, carvedilol, gabapentin, famotidine, pantoprazole, lidocaine, Centrum, lutein, Cymbalta, donepezil, Namenda. PHYSICAL EXAMINATION: VITAL SIGNS: Temperature is 97.9, pulse rate 77, respiratory rate 14, blood pressure 126/67, saturation is 96% on room air. GENERAL: Alert, responsive, no acute distress. She is responsive. HEAD AND NECK: Oral exam, no thrush. Eye exam, no icterus. Neck is supple. No JVD. Normocephalic. HEART: Regular rate and rhythm. No gallop or murmur. No friction rub. ABDOMEN: Soft. Positive bowel sounds. Nontender. LUNGS: Clear bilaterally. No rhonchi or rales. SKIN: No rash. MUSCULOSKELETAL: No effusion. Legs are without cellulitis. PERIPHERAL VASCULAR: No cyanosis. GENITOURINARY: No Mcgowan. No CVA tenderness. LINE SITES: Without phlebitis. NEUROLOGIC: Nonfocal, responsive, alert. LABORATORY AND DIAGNOSTIC DATA: White count 12.2, hemoglobin 13.5. White count yesterday was 24.9. Creatinine 0.6, sodium 129. LFTs noted. UA initially had positive nitrite and positive 2+ leukocyte esterase, many bacteria. Followup UA, leukocyte esterase negative, however, the patient was on antibiotics. Cultures, urine culture had ESBL E. coli greater 100,000. Blood cultures pending. IMAGING STUDIES: Chest x-ray showed no pneumonia, no focal consolidation, maybe increased interstitial prominence. MRI of the abdomen is noted. ASSESSMENT AND PLAN: 1. The patient has ESBL E. coli complicated UTI, leukocytosis, altered mental status, and possible sepsis, rule out underlying pyelonephritis, with leukocytosis and positive sepsis. Continue at this time meropenem for the ESBL E. coli UTI, sepsis, leukocytosis. This is day #2 of meropenem. Plan at least a 10-day course. Follow up on MRI to see if there is any underlying pyelonephritis. Case discussed with Dr. Sorenson. Continue meropenem for now. Again day #2. 2. The patient has hyponatremia. 3. The patient is not anemic. 4. The patient has history of lupus. 5. Possible rheumatoid arthritis. 6. History of steroids including prednisone. 7. Coronary artery disease and SD. 8. Hypertension. 9. Hypothyroidism. 10. Osteoarthritis. 11. Decreased visual acuity. 12. GERD. 13. CVA. 14. History of recurrent UTI. 15. Neuropathic pain. 16. Allergies to Cipro, acetaminophen, oxycodone, penicillin, plastic tape, iodine, and multiple other allergies. 17. Social history negative. 18. Family history noncontributory. 19. MAR is noted. 20. Case discussed with RN. 21. Case discussed with Dr. Stephan Sorenson. 22. Continue treatment per primary consultants. Na Huang M.D. DR: GUSTAVO JOB#: [id number] CC: [place]
[2018-10-24 04:00] VITALS: BP 131/66
[2018-10-24 06:41] LABS: EOSINOPHILS % (AUTO) 6.3 % (0.0-3.0); HEMOGLOBIN 14.3 G/DL (12.0-16.0); LYMPHOCYTES % (AUTO) 12.5 % (20.0-45.0); MEAN CORPUSCULAR VOLUME 97 FL (80-99); MONOCYTES % (AUTO) 5.8 % (1.0-10.0); NEUTROPHILS % (AUTO) 74.5 % (45.0-75.0); PLATELET COUNT 200 K/UL (150-450); RED BLOOD COUNT 4.15 M/UL (4.20-5.40); RED CELL DISTRIBUTION WIDTH 10.5 % (11.6-14.8); WHITE BLOOD COUNT 10.7 K/UL (4.8-10.8)
[2018-10-24 07:24] LABS: ALANINE AMINOTRANSFERASE 19 U/L (12-78); ALBUMIN/GLOBULIN RATIO 0.8 (1.0-2.7); ALKALINE PHOSPHATASE 68 U/L (46-116); ANION GAP 7 mmol/L (5-15); ASPARTATE AMINO TRANSFERASE 21 U/L (15-37); BLOOD UREA NITROGEN 5 mg/dL (7-18); CALCIUM 8.6 MG/DL (8.5-10.1); CARBON DIOXIDE 27 MMOL/L (21-32); CHLORIDE 96 MMOL/L (98-107); CREATININE 0.7 MG/DL (0.55-1.30); POTASSIUM 3.4 MMOL/L (3.5-5.1); SODIUM 130 MMOL/L (136-145)
--- NOTE | 2018-10-24 07:29 | NUR ---
HAND-OFF: Report given to DICK Magaña
[2018-10-24 07:44] VITALS: BP 140/70
[2018-10-24] MEDS: D5NS w/KCl 40mEq 1000ml 1,000 ML IV SCH ×2 (09:21→21:30)
--- NOTE | 2018-10-24 10:00 | NUR ---
MRI ABDOMEN/PELVIS W/O COMPLETED.
--- NOTE | 2018-10-24 10:13 | NUR ---
NURSE NOTES: pt awake alert, no distress. no sob. call light within reach. bed in lowest position, locked. will monitor.
--- NOTE | 2018-10-24 10:55 | NUR ---
PT NOTE Attempted to see patient for PT treatment. Patient declining to participate with PT. Educated patient on benefits of participating with PT however patient continued to decline. Gómez JENNINGS notified, will re-attempt tomorrow.
[2018-10-24 12:00] VITALS: BP 132/68
[2018-10-24 16:00] VITALS: BP 128/70
--- NOTE | 2018-10-24 16:18 | NUR ---
NURSE NOTES: pt resting in bed comfortably no sob no c/o pain. per son (during his visit) pt is saying that her other son is visiting her per son who visited, the other son , relayed to Dr Sorenson also relayed to dr Sorenson re k level, na level and pvr today. no new orders , per md he will see the patient first.
--- NOTE | 2018-10-24 16:52 | Diagnostic Imaging Report ---
Indication: Abdominal pain Technique: MRI of the abdomen and pelvis was performed in a 1.5 Kiley magnet. Pulse sequences obtained include coronal and axial T2 single shot fast spin echo breathhold, Axial T1 FSPGR in/out phase, Axial T2 FSE w/ fat saturation, Axial 2-D FIESTA, Ax/Cor T1 LAVA. Respiratory gated coronal T2 3-D M.R.C.P.; this data set was displayed in different projections or MIPs. In addition, multiple coronal oblique thin T2 weighted, fat saturated SE sequences obtained through the CBD. Comparison: None Findings: Gallbladder is unremarkable. There is no biliary ductal dilatation or evidence of choledocholithiasis. The spleen and liver appear normal in size and signal. The pancreas is unremarkable. There is no hydronephrosis. There is no adrenal mass. The aorta is moderately ectatic and calcified. There is no evidence of bowel obstruction. There is trabeculation of the urinary bladder wall consistent with chronic cystitis. The appendix is not definitely seen. There is no free fluid within the pelvis. Uterus is absent. There is narrowing of intervertebral discs and accompanying endplate osteophyte formation. Hypertrophied facet joints also demonstrated. Scoliosis of the lumbar spine convex to the left demonstrated. IMPRESSION: No acute findings in the abdomen or pelvis identified. No evidence of biliary ductal dilatation, choledocholithiasis or gallstones. Trabeculation and wall thickening of the urinary bladder consistent with chronic cystitis. Atherosclerotic vascular disease Degenerative changes of the spine. Scoliosis.
--- NOTE | 2018-10-24 16:53 | NUR ---
NURSE NOTES: Dr Sorenson also made aware of patient refusing all meals.
--- NOTE | 2018-10-24 18:05 | Geriatric Progress Note ---
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 years (4) History of coronary artery stent placement (5) Cardiomyopathy (6) Hypertension (7) Lupus (systemic lupus erythematosus) (8) Osteoarthritis (9) Status post cataract extraction and insertion of intraocular lens of left eye (10) Status post cataract extraction and insertion of intraocular lens of right eye (11) Age-related macular degeneration (12) Hearing loss (13) Hypothyroidism (14) Depressed affect (15) Hallucinations, unspecified (16) Sleep disorder (17) Frequent falls (18) UTI (urinary tract infection) (19) Altered mental status (20) Acute alteration in mental status (21) Hyponatremia (22) Hypokalemia (23) Hypomagnesemia (24) Leukocytosis Assessment/Plan Fragile orientation, but not totally forgetful, with recurrent refusal of meds and food. No indication of definite infection locus. Bladder is consistent with recurrent infection but no stones or obstruction noted on scan. Will discuss duration of antibiotics with Dr. Jayde vinson. Given psychiatric symptoms would like to use antidepressant therapy, antipsychotic in low dose. However, with hyponatremia, will not use new SSRI, will try Wellbutrin. Also low dose of Zyprexa. Continue IVF for now, and give Mg supplement. Follow labs. If psychosis improved, still hope for d/c to SNF for rehab. All issues discussed in detail with son, confirmed DNR status. Discussed with: patient, family, hospital staff Subjective Interval Events Patient alert, calm, with confabulatory answers. Denies pain or discomfort. States son did not visit her today, will tomorrow when she goes home. Refusing meds, meals today. Son reports patient with delusional thought content today during his visit about son, visits by brother, [id number], with some paranoia expressed. Labs with normalized wbc, Na, K, Mg still low. MRI abd/pelvis with trabeculated bladder, but no evidence of abscess, obstruction, mass. Constitutional: Denies: chills, pain, sweats, fever Respiratory: Denies: shortness of breath Cardiovascular: Denies: chest pain, palpitations Gastrointestinal/Abdominal: Denies: abdominal pain, constipation, diarrhea, nausea Genitourinary: Denies: dysuria Geriatric Geriatric Last 24 Hour Vital Signs Date Time Temp Pulse Resp B/P (MAP) Pulse Ox O2 Delivery O2 Flow Rate FiO2 10/24/18 16:00 97.5 82 18 128/70 (89) 99 10/24/18 12:00 97.5 80 18 132/68 (89) 99 10/24/18 07:48 Room Air 10/24/18 07:44 97.5 82 18 140/70 (93) 99 10/24/18 04:00 97.5 82 18 131/66 (87) 99 10/23/18 21:00 Room Air 10/23/18 20:00 98.5 79 19 135/71 (92) 96 Intake and Output 10/23/18 10/24/18 18:59 06:59 Intake Total 1325 ml 900 ml Balance 1325 ml 900 ml Intake Oral 500 ml IV Total 925 ml Other 400 ml 400 ml Bladder Scan Volume Amount 151-200 ml # Voids 3 # Bowel Movements 1 Laboratory Tests Test 10/24/18 06:05 White Blood Count 10.7 K/UL (4.8-10.8) Red Blood Count 4.15 M/UL (4.20-5.40) L Hemoglobin 14.3 G/DL (12.0-16.0) Hematocrit 40.0 % (37.0-47.0) Mean Corpuscular Volume 97 FL (80-99) Mean Corpuscular Hemoglobin 34.4 PG (27.0-31.0) H Mean Corpuscular Hemoglobin Concent 35.6 G/DL (32.0-36.0) Red Cell Distribution Width 10.5 % (11.6-14.8) L Platelet Count 200 K/UL (150-450) Mean Platelet Volume 5.2 FL (6.5-10.1) L Neutrophils (%) (Auto) 74.5 % (45.0-75.0) Lymphocytes (%) (Auto) 12.5 % (20.0-45.0) L Monocytes (%) (Auto) 5.8 % (1.0-10.0) Eosinophils (%) (Auto) 6.3 % (0.0-3.0) H Basophils (%) (Auto) 1.0 % (0.0-2.0) Sodium Level 130 MMOL/L (136-145) L Potassium Level 3.4 MMOL/L (3.5-5.1) L Chloride Level 96 MMOL/L (98-107) L Carbon Dioxide Level 27 MMOL/L (21-32) Anion Gap 7 mmol/L (5-15) Blood Urea Nitrogen 5 mg/dL (7-18) L Creatinine 0.7 MG/DL (0.55-1.30) Estimat Glomerular Filtration Rate mL/min (>60) Glucose Level 106 MG/DL (74-106) Calcium Level 8.6 MG/DL (8.5-10.1) Magnesium Level 1.6 MG/DL (1.8-2.4) L Total Bilirubin 1.0 MG/DL (0.2-1.0) Aspartate Amino Transf (AST/SGOT) 21 U/L (15-37) Alanine Aminotransferase (ALT/SGPT) 19 U/L (12-78) Alkaline Phosphatase 68 U/L (46-116) Total Protein 6.9 G/DL (6.4-8.2) Albumin 3.0 G/DL (3.4-5.0) L Globulin 3.9 g/dL Albumin/Globulin Ratio 0.8 (1.0-2.7) L Current Medications Medications (Trade) Dose Ordered Sig/Mansi Route PRN Reason Start Time Stop Time Status Last Admin Dose Admin Dextrose/ Electrolytes 1,000 ml @ 75 mls/hr [id number] IV 10/22/18 17:00 11/21/18 16:59 10/24/18 09:21 Donepezil HCl (Aricept) 10 mg QHS ORAL 10/18/18 21:00 11/17/18 20:59 10/22/18 22:05 Duloxetine HCl (Cymbalta) 20 mg DAILY ORAL 10/19/18 09:00 11/18/18 08:59 10/23/18 10:05 Levothyroxine Sodium (Synthroid) 75 mcg DAILY@0630 ORAL 10/21/18 06:30 11/20/18 06:29 10/24/18 06:35 Meropenem 500 mg/ Sodium Chloride 50 ml @ 100 mls/hr Q12HR@0200,1400 IVPB 10/22/18 14:00 10/27/18 13:59 10/24/18 14:01 Pantoprazole (Protonix) 40 mg DAILY ORAL 10/19/18 09:00 11/18/18 08:59 10/23/18 10:05 Prednisone (predniSONE) 5 mg DAILY ORAL 10/23/18 09:00 11/22/18 08:59 10/23/18 10:05 Height (Feet): 5 Height (Inches): 2.00 Weight (Pounds): 107 General Appearance: alert - flat affect Head: normocephalic, other - R periorbital abrasion almost completely healed. Eyes: bilateral anicteric ENT: normal voice Neck: full range of motion, no mass Respiratory: lungs clear Cardiovascular: regular rate, rhythm Gastrointestinal: normal bowel sounds, non tender, soft, no mass, no organomegaly, non-distended Musculoskeletal: no calf tenderness Edema: no edema noted Generalized Neurologic: no new focality, other - Identifies "[place], October 29, 2018." Stephan Sorenson MD Oct 24, 2018 18:05
[2018-10-24] MEDS: OLANZapine 2.5mg tab ORAL SCH (18:26)
--- NOTE | 2018-10-24 19:13 | NUR ---
HAND-OFF: Report given to ANATOLY JENNINGS.
--- NOTE | 2018-10-24 19:25 | NUR ---
NURSE NOTES: RECEIVED PT FROM DICK RAE. PT IS AWAKE, AAOX2, ON ROOM AIR NO ACUTE DISTRESS NOTED. COMMODE IS BY BEDSIDE. MULTIPLE BRUISED NOTED ON ARMS AND LEGS PER HX. OF FALL. IV ON LEFT FA 22G IS INTACT AND PATENT. BED IS LOCKED AT THE LOWEST POSITION, BED ALARMS ACTIVE, SIDE RAILS UP X3, AND CALL LIGHT IS WITHIN REACH. WILL CONTINUE TO MONITOR.
[2018-10-24 20:00] VITALS: BP 127/67
--- NOTE | 2018-10-24 21:04 | NUR ---
CASE MANAGEMENT: REVIEW SI: UTI . FREQUENT FALLS . OSTEOARTHRITIS T 97.5 HR 80 RR 18 BP 128/70 SAT 99% ROOM AIR NA 130 K 3.4 MRI ABD PENDING IS: PROTONIX PO QD CEFTRIAXONE IV QD D5W @55ML/HR PVR BLADDER SCAN QD MED/SURG UNIT STATUS DCP: PATIENT IS FROM [facility]
[2018-10-24] MEDS: Donepezil 10mg tab ORAL SCH (21:30)
[2018-10-25] VITALS: BP 128/68
[2018-10-25 04:00] VITALS: BP 116/71
[2018-10-25 07:22] LABS: BASOPHILS % (AUTO) 1.2 % (0.0-2.0); EOSINOPHILS % (AUTO) 8.6 % (0.0-3.0); HEMATOCRIT 40.6 % (37.0-47.0); HEMOGLOBIN 14.3 G/DL (12.0-16.0); LYMPHOCYTES % (AUTO) 10.3 % (20.0-45.0); MEAN CORPUSCULAR VOLUME 97 FL (80-99); MONOCYTES % (AUTO) 7.6 % (1.0-10.0); NEUTROPHILS % (AUTO) 72.3 % (45.0-75.0); PLATELET COUNT 209 K/UL (150-450); RED CELL DISTRIBUTION WIDTH 10.3 % (11.6-14.8)
[2018-10-25 07:29] LABS: ANION GAP 9 mmol/L (5-15); BLOOD UREA NITROGEN 5 mg/dL (7-18); CALCIUM 8.9 MG/DL (8.5-10.1); CARBON DIOXIDE 23 MMOL/L (21-32); CHLORIDE 101 MMOL/L (98-107); CREATININE 0.7 MG/DL (0.55-1.30); POTASSIUM 3.9 MMOL/L (3.5-5.1); SODIUM 133 MMOL/L (136-145)
--- NOTE | 2018-10-25 07:47 | NUR ---
HAND-OFF: Report given to DICK Jacques.
--- NOTE | 2018-10-25 07:50 | NUR ---
NURSE NOTES: Received patient in bed, awake, verbally responsive. Patient is alert and oriented x2-3,no delusional thinking @ this time. I V intact, no s/s of infiltration. Bed is in lowest position and locked. Call light within reach. Bed alarm is on. Will continue plan of care.
[2018-10-25 08:00] VITALS: BP 135/77
[2018-10-25] MEDS: BuPROPion 75mg Tab ORAL SCH (10:02)
[2018-10-25] MEDS: OLANZapine 2.5mg tab ORAL SCH (10:02)
[2018-10-25] MEDS: D5NS w/KCl 40mEq 1000ml 1,000 ML IV SCH (11:52)
--- NOTE | 2018-10-25 11:58 | NUR ---
RD ASSESSMENT & RECOMMENDATIONS SEE CARE ACTIVITY FOR COMPLETE ASSESSMENT DAILY ESTIMATED NEEDS: Needs based on wt loss/ 48kg 28-33 kcals/kg 0602-9591 total kcals 1-1.5 g protein/kg 48-72 g total protein 25-30 mL/kg 3635-2093 total fluid mLs NUTRITION DIAGNOSIS: Unintentional wt loss R/T poor appetite as evidenced by pt reports significant wt loss of 34lbs/24.6% in <7-8 months, currently w/ poor PO intake as documented. CURRENT DIET:KEN, mech soft chopped PO DIET RECOMMENDATIONS: Liberalized REGULAR diet w/ poor PO intake(texture per [employer] or as tolerated) ADDITIONAL RECOMMENDATIONS: * Calibrated bedscale wt for accurate CBW * Weekly wt monitoring given possible h/o significant wt loss * Consider appetite stimulant- admitted w/ poor PO, cont w/ poor PO * Soymilk w/ breakfast, Snacks BID in b/w meals (pt is lactose intolerant, does not want any dairy products nor Ensure) * MVI x 1 as supplement * Add snacks in b/w meals, pt does not want Ensure
[2018-10-25 12:00] VITALS: BP 122/91
--- NOTE | 2018-10-25 15:17 | Infectious Diseases Prog Note ---
Assessment/Plan Assessment/Plan ASSESSMENT AND PLAN: 1. esbl e.coli uti/complicated uti, leukocytosis, possible sepsis - - meropenem - day # 4/10 (can substitute ertapenem 1 gm daily if less frequent dosing needed) - clinically improved, leukocytosis resolved - MRI noted and c/w chronic cystitis - monitor labs 2. The patient has hyponatremia. 3. The patient is not anemic. 4. The patient has history of lupus. 5. Possible rheumatoid arthritis. 6. History of steroids including prednisone. 7. Coronary artery disease and SD. 8. Hypertension. 9. Hypothyroidism. 10. Osteoarthritis. 11. Decreased visual acuity. 12. GERD. 13. CVA. 14. History of recurrent UTI. 15. Neuropathic pain. 16. Allergies to Cipro, acetaminophen, oxycodone, penicillin, plastic tape, iodine, and multiple other allergies. 17. Social history negative. 18. Family history noncontributory. 19. MAR is noted. 20. Case discussed with RN. 21. Case discussed with Dr. Stephan Sorenson. 22. Continue treatment per primary consultants. Subjective Constitutional: Reports: other - more alert and communicative ; Denies: fever HEENT: Denies: congestion Respiratory: Denies: shortness of breath Cardiovascular: Denies: chest pain Gastrointestinal/Abdominal: Denies: nausea, vomiting, diarrhea Genitourinary: Reports: other - no nash, no cva pain Neurologic: Denies: headache Psychiatric: Denies: depression Skin: Denies: rash Hematologic: Denies: bleeding Musculoskeletal: Denies: pain Allergies: Coded Allergies: ACETAMINOPHEN (Verified Allergy, Unknown, 10/18/18) CIPROFLOXACIN (Verified Allergy, Unknown, 10/18/18) CODEINE (Verified Allergy, Unknown, 10/18/18) IBUPROFEN (Verified Allergy, Unknown, 10/18/18) IODINE (Verified Allergy, Unknown, 10/18/18) NAPROXEN (Verified Allergy, Unknown, 10/18/18) OXYCODONE (Verified Allergy, Unknown, 10/18/18) PENICILLINS (Verified Allergy, Unknown, 10/18/18) Shrimp (Verified Allergy, Unknown, 10/18/18) Uncoded Allergies: BRUSSEL SPROUTS (Allergy, Unknown, 10/18/18) LACTOSE INTOLERANT (Allergy, Unknown, 10/18/18) PLASTIC TAPE (Allergy, Unknown, 10/18/18) lactose intolerance (Allergy, Unknown, 10/18/18) Objective Vital Signs Last 24 Hour Vital Signs Date Time Temp Pulse Resp B/P (MAP) Pulse Ox O2 Delivery O2 Flow Rate FiO2 10/25/18 12:00 97.8 94 19 122/91 (101) 98 10/25/18 09:00 Room Air 10/25/18 08:00 98.0 89 19 135/77 (96) 97 10/25/18 04:00 97.8 82 16 116/71 (86) 96 10/25/18 00:00 98.1 87 16 128/68 (88) 98 10/24/18 21:00 Room Air 10/24/18 20:00 97.8 96 16 127/67 (87) 96 10/24/18 16:00 97.5 82 18 128/70 (89) 99 Height (Feet): 5 Height (Inches): 2.00 Weight (Pounds): 107 General Appearance: no acute distress HEENT: normocephalic, atraumatic, anicteric, mucous membranes moist Respiratory/Chest: lungs clear, normal breath sounds, no respiratory distress, no accessory muscle use Cardiovascular: normal rate, regular rhythm, no gallop/murmur, no JVD Abdomen: normal bowel sounds, soft, non tender, no organomegaly, non distended Genitourinary: other - no nash Extremities: no cyanosis Skin: no rash Neurologic/Psychiatric: blood bank assistant II-XII grossly normal, alert, oriented x 3, responsive Lymphatic: no neck adenopathy Musculoskeletal: no effusion Objective MRI abdomen and pelvis: IMPRESSION: No acute findings in the abdomen or pelvis identified. No evidence of biliary ductal dilatation, choledocholithiasis or gallstones. Trabeculation and wall thickening of the urinary bladder consistent with chronic cystitis. Chest x-ray - IMPRESSION: Slight increased interstitial prominence. No focal consolidation. Microbiology Date/Time Source Procedure Growth Status 10/22/18 07:30 Blood Blood Culture - Preliminary NO GROWTH AFTER 48 HOURS Resulted 10/18/18 12:24 Nasal Nares MRSA Culture - Final NO METHICILLIN RESISTANT STAPH AUREUS... Complete 10/22/18 13:35 Straight Cath Urine Culture - Preliminary NO GROWTH AFTER 24 HOURS Resulted 10/18/18 12:24 Rectum VRE Culture - Final NO VANCOMYCIN RESISTANT ENTEROCOCCUS ... Complete 10/18/18 12:24 Rectum - Final NO CARBAPENEM-RESISTANT ENTEROBACTERI... Complete Laboratory Tests Test 10/25/18 06:10 White Blood Count 10.0 K/UL (4.8-10.8) Red Blood Count 4.20 M/UL (4.20-5.40) Hemoglobin 14.3 G/DL (12.0-16.0) Hematocrit 40.6 % (37.0-47.0) Mean Corpuscular Volume 97 FL (80-99) Mean Corpuscular Hemoglobin 34.0 PG (27.0-31.0) H Mean Corpuscular Hemoglobin Concent 35.2 G/DL (32.0-36.0) Red Cell Distribution Width 10.3 % (11.6-14.8) L Platelet Count 209 K/UL (150-450) Mean Platelet Volume 5.4 FL (6.5-10.1) L Neutrophils (%) (Auto) 72.3 % (45.0-75.0) Lymphocytes (%) (Auto) 10.3 % (20.0-45.0) L Monocytes (%) (Auto) 7.6 % (1.0-10.0) Eosinophils (%) (Auto) 8.6 % (0.0-3.0) H Basophils (%) (Auto) 1.2 % (0.0-2.0) Sodium Level 133 MMOL/L (136-145) L Potassium Level 3.9 MMOL/L (3.5-5.1) Chloride Level 101 MMOL/L (98-107) Carbon Dioxide Level 23 MMOL/L (21-32) Anion Gap 9 mmol/L (5-15) Blood Urea Nitrogen 5 mg/dL (7-18) L Creatinine 0.7 MG/DL (0.55-1.30) Estimat Glomerular Filtration Rate mL/min (>60) Glucose Level 135 MG/DL (74-106) H Calcium Level 8.9 MG/DL (8.5-10.1) Magnesium Level 2.7 MG/DL (1.8-2.4) H Current Medications Medications (Trade) Dose Ordered Sig/Mansi Route PRN Reason Start Time Stop Time Status Last Admin Dose Admin Bupropion HCl (Wellbutrin) 75 mg DAILY ORAL 10/25/18 09:00 11/24/18 08:59 10/25/18 10:02 Dextrose/ Electrolytes 1,000 ml @ 75 mls/hr [id number] IV 10/22/18 17:00 11/21/18 16:59 10/25/18 11:52 Donepezil HCl (Aricept) 10 mg QHS ORAL 10/18/18 21:00 11/17/18 20:59 10/24/18 21:30 Duloxetine HCl (Cymbalta) 20 mg DAILY ORAL 10/19/18 09:00 11/18/18 08:59 10/25/18 10:02 Levothyroxine Sodium (Synthroid) 75 mcg DAILY@0630 ORAL 10/21/18 06:30 11/20/18 06:29 10/25/18 06:37 Meropenem 500 mg/ Sodium Chloride 50 ml @ 100 mls/hr Q12HR@0200,1400 IVPB 10/22/18 14:00 10/27/18 13:59 10/25/18 14:52 Olanzapine (ZyPREXA) 2.5 mg DAILY ORAL 10/24/18 18:00 11/23/18 17:59 10/25/18 10:02 Pantoprazole (Protonix) 40 mg DAILY ORAL 10/19/18 09:00 11/18/18 08:59 10/25/18 10:02 Prednisone (predniSONE) 5 mg DAILY ORAL 10/23/18 09:00 11/22/18 08:59 10/25/18 10:02 Na Huang MD Oct 25, 2018 15:17
[2018-10-25 16:00] VITALS: BP 126/76
--- NOTE | 2018-10-25 17:29 | Geriatric Progress Note ---
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 years (4) History of coronary artery stent placement (5) Cardiomyopathy (6) Hypertension (7) Lupus (systemic lupus erythematosus) (8) Osteoarthritis (9) Status post cataract extraction and insertion of intraocular lens of left eye (10) Status post cataract extraction and insertion of intraocular lens of right eye (11) Age-related macular degeneration (12) Hearing loss (13) Hypothyroidism (14) Depressed affect (15) Hallucinations, unspecified (16) Sleep disorder (17) Frequent falls (18) UTI (urinary tract infection) (19) Altered mental status (20) Acute alteration in mental status (21) Hyponatremia (22) Hypokalemia (23) Hypomagnesemia (24) Leukocytosis (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 Will not make further changes at present. Consider d/c Cymbalta in future given hyponatremia. Continue other therapy. Complete 10d meropenem per Dr. Huang. If behavior stabilized and electrolytes stabilized, d/c IVF, d/c to SNF for rehab. Discussed with: patient, hospital staff Subjective Interval Events Patient considerably brighter today, alert. Denies c/o, does ask about going home. Staff reports compliant with medications today, walked 30' x 2 with P.T. Intake remains low. Labs with Na, K, Mg correcting. No new clinical issues at present. Constitutional: Denies: chills, pain, sweats, fever Respiratory: Denies: shortness of breath Cardiovascular: Denies: chest pain, palpitations Gastrointestinal/Abdominal: Denies: abdominal pain, diarrhea, nausea, vomiting Genitourinary: Denies: dysuria Geriatric Geriatric Last 24 Hour Vital Signs Date Time Temp Pulse Resp B/P (MAP) Pulse Ox O2 Delivery O2 Flow Rate FiO2 10/25/18 16:00 98.6 72 19 126/76 (93) 97 10/25/18 12:00 97.8 94 19 122/91 (101) 98 10/25/18 09:00 Room Air 10/25/18 08:00 98.0 89 19 135/77 (96) 97 10/25/18 04:00 97.8 82 16 116/71 (86) 96 10/25/18 00:00 98.1 87 16 128/68 (88) 98 10/24/18 21:00 Room Air 10/24/18 20:00 97.8 96 16 127/67 (87) 96 Intake and Output 10/24/18 10/25/18 19:00 07:00 Intake Total 1425 ml 625 ml Balance 1425 ml 625 ml Intake Oral 500 ml IV Total 925 ml 625 ml Bladder Scan Volume Amount 257 # Voids 2 3 # Bowel Movements 1 Laboratory Tests Test 10/25/18 06:10 White Blood Count 10.0 K/UL (4.8-10.8) Red Blood Count 4.20 M/UL (4.20-5.40) Hemoglobin 14.3 G/DL (12.0-16.0) Hematocrit 40.6 % (37.0-47.0) Mean Corpuscular Volume 97 FL (80-99) Mean Corpuscular Hemoglobin 34.0 PG (27.0-31.0) H Mean Corpuscular Hemoglobin Concent 35.2 G/DL (32.0-36.0) Red Cell Distribution Width 10.3 % (11.6-14.8) L Platelet Count 209 K/UL (150-450) Mean Platelet Volume 5.4 FL (6.5-10.1) L Neutrophils (%) (Auto) 72.3 % (45.0-75.0) Lymphocytes (%) (Auto) 10.3 % (20.0-45.0) L Monocytes (%) (Auto) 7.6 % (1.0-10.0) Eosinophils (%) (Auto) 8.6 % (0.0-3.0) H Basophils (%) (Auto) 1.2 % (0.0-2.0) Sodium Level 133 MMOL/L (136-145) L Potassium Level 3.9 MMOL/L (3.5-5.1) Chloride Level 101 MMOL/L (98-107) Carbon Dioxide Level 23 MMOL/L (21-32) Anion Gap 9 mmol/L (5-15) Blood Urea Nitrogen 5 mg/dL (7-18) L Creatinine 0.7 MG/DL (0.55-1.30) Estimat Glomerular Filtration Rate mL/min (>60) Glucose Level 135 MG/DL (74-106) H Calcium Level 8.9 MG/DL (8.5-10.1) Magnesium Level 2.7 MG/DL (1.8-2.4) H Current Medications Medications (Trade) Dose Ordered Sig/Mansi Route PRN Reason Start Time Stop Time Status Last Admin Dose Admin Bupropion HCl (Wellbutrin) 75 mg DAILY ORAL 10/25/18 09:00 11/24/18 08:59 10/25/18 10:02 Dextrose/ Electrolytes 1,000 ml @ 75 mls/hr [id number] IV 10/22/18 17:00 11/21/18 16:59 10/25/18 11:52 Donepezil HCl (Aricept) 10 mg QHS ORAL 10/18/18 21:00 11/17/18 20:59 10/24/18 21:30 Duloxetine HCl (Cymbalta) 20 mg DAILY ORAL 10/19/18 09:00 11/18/18 08:59 10/25/18 10:02 Levothyroxine Sodium (Synthroid) 75 mcg DAILY@0630 ORAL 10/21/18 06:30 11/20/18 06:29 10/25/18 06:37 Meropenem 500 mg/ Sodium Chloride 50 ml @ 100 mls/hr Q12HR@0200,1400 IVPB 10/26/18 02:00 10/31/18 01:59 Olanzapine (ZyPREXA) 2.5 mg DAILY ORAL 10/24/18 18:00 11/23/18 17:59 10/25/18 10:02 Pantoprazole (Protonix) 40 mg DAILY ORAL 10/19/18 09:00 11/18/18 08:59 10/25/18 10:02 Prednisone (predniSONE) 5 mg DAILY ORAL 10/23/18 09:00 11/22/18 08:59 10/25/18 10:02 Height (Feet): 5 Height (Inches): 2.00 Weight (Pounds): 107 General Appearance: no apparent distress, alert - still guarded to some extent. , non-toxic Head: normocephalic, other - periorbital discoloration resolving. Ecchymoses as noted. Eyes: bilateral anicteric ENT: normal voice Neck: full range of motion, no mass Respiratory: lungs clear Cardiovascular: regular rate, rhythm Gastrointestinal: normal bowel sounds, non tender, soft, no mass, no organomegaly, non-distended Musculoskeletal: no calf tenderness Edema: no edema noted Generalized Neurologic: no new focality, other - Identifies "Martha. November 09, 2018." Stephan Sorenson MD Oct 25, 2018 17:29
--- NOTE | 2018-10-25 19:25 | NUR ---
HAND-OFF: Report given to Tori.
--- NOTE | 2018-10-25 19:43 | NUR ---
NURSE NOTES: RECEIVED PT FROM DICK CARDENAS. PT IS RESTING IN BED CALMLY. AAO X2, ON ROOM AIR, NO ACUTE DISTRESS NOTED. DENIES PAIN. IV ON LEFT AC IS INTACT AND PATENT. BEDSIDE COMMODE PRESENT. BED IS LOCKED AT THE LOWEST POSITION, BED ALARMS ACTIVE, SIDE RAILS UP X2, AND CALL LIGHT IS WITHIN REACH. WILL CONTINUE TO MONITOR.
[2018-10-25 20:00] VITALS: BP 104/59
[2018-10-25] MEDS: Donepezil 10mg tab ORAL SCH (20:50)
[2018-10-26] VITALS: BP 126/61
[2018-10-26] MEDS: D5NS w/KCl 40mEq 1000ml 1,000 ML IV SCH ×3 (01:21→20:55)
[2018-10-26 04:00] VITALS: BP 125/63
[2018-10-26 06:16] LABS: BASOPHILS % (AUTO) 1.6 % (0.0-2.0); EOSINOPHILS % (AUTO) 11.2 % (0.0-3.0); HEMATOCRIT 38.7 % (37.0-47.0); HEMOGLOBIN 13.7 G/DL (12.0-16.0); MEAN CORPUSCULAR VOLUME 98 FL (80-99); MONOCYTES % (AUTO) 7.4 % (1.0-10.0); NEUTROPHILS % (AUTO) 66.8 % (45.0-75.0); PLATELET COUNT 190 K/UL (150-450); RED BLOOD COUNT 3.95 M/UL (4.20-5.40); RED CELL DISTRIBUTION WIDTH 10.6 % (11.6-14.8); WHITE BLOOD COUNT 10.2 K/UL (4.8-10.8)
[2018-10-26 06:57] LABS: ALANINE AMINOTRANSFERASE 21 U/L (12-78); ALBUMIN 2.5 G/DL (3.4-5.0); ALBUMIN/GLOBULIN RATIO 0.7 (1.0-2.7); ALKALINE PHOSPHATASE 63 U/L (46-116); ANION GAP 8 mmol/L (5-15); ASPARTATE AMINO TRANSFERASE 22 U/L (15-37); BILIRUBIN,TOTAL 1.1 MG/DL (0.2-1.0); BLOOD UREA NITROGEN 3 mg/dL (7-18); CALCIUM 8.4 MG/DL (8.5-10.1); CARBON DIOXIDE 23 MMOL/L (21-32); CHLORIDE 102 MMOL/L (98-107); CREATININE 0.6 MG/DL (0.55-1.30); POTASSIUM 4.1 MMOL/L (3.5-5.1); SODIUM 133 MMOL/L (136-145)
[2018-10-26 06:58] LABS: BILIRUBIN,DIRECT 0.2 MG/DL (0.0-0.3)
--- NOTE | 2018-10-26 07:29 | NUR ---
HAND-OFF: Report given to DICK Jacques. Pt is awake, resting in bed, no acute distress noted. Endorsed to AM RN the plan of care.
--- NOTE | 2018-10-26 07:30 | NUR ---
NURSE NOTES: Received patient in bed, awake, verbally responsive. Patient is alert and oriented x2-3,no delusional thinking @ this time. I V intact, no s/s of infiltration, IVF running. Bed is in lowest position and locked. Call light within reach. Bed alarm is on. Will continue plan of care.
[2018-10-26 08:00] VITALS: BP 128/66
[2018-10-26] MEDS: OLANZapine 2.5mg tab ORAL SCH (09:29)
[2018-10-26] MEDS: BuPROPion 75mg Tab ORAL SCH (09:29)
[2018-10-26 12:00] VITALS: BP 144/81
--- NOTE | 2018-10-26 13:30 | NUR ---
NURSE NOTES: RN spoke to Dr. Teran over the phone and relayed the episodes of shaking her upper ex's while getting out of the bed with PT and when she starts to move, she shakes but no involuntary when resting. RN also relayed that patient has poor po intake. Dr. Teran is coming to see the patient later and he asked RN to check with CM if there is still available room @ rehab center [facility]. RN spoke to Radha NITHIN and she will follow up. Addendum: 10/26/18 at 1815 by BUTCH CURTIS RN DR TERAN IS AWARE OF PATIENT HEART RATE / VITALS TREND TODAY, NO NEW ORDER RECEIVED.
[2018-10-26 16:00] VITALS: BP 158/81
--- NOTE | 2018-10-26 17:45 | NUR ---
SUPERVISOR [employer] NOTES SPOKE WITH DOMI FROM [facility], PT ACCEPTED. PER DOMI SHE NEEDS TO KNOW THE DATE OF DC FOR STAFFING. UPDATED CLINICALS FAXED TO DOMI. [facility] P) [phone] (F) [phone]
--- NOTE | 2018-10-26 18:00 | NUR ---
NURSE NOTES: patient refused to eat. RN helped the patient but she refused to eat. Will continue to monitor.
--- NOTE | 2018-10-26 19:37 | NUR ---
HAND-OFF: Report given to Tori.
[2018-10-26 20:00] VITALS: BP 144/79
--- NOTE | 2018-10-26 20:02 | NUR ---
NURSE NOTES: RECEIVED PT FROM DICK CARDENAS. PT IS AWAKE, AAOX2, CALMLY RESTING IN BED. PT APPEARED LETHARGIC, INCREASE HAND TREMORS, SLUR AND RAMBLING SPEECH. IV ON RIGHT FA 24G IS INTACT AND PATENT, RUNNING D5NS W/KCL 40 MEQ AT 75 ML/HR. PUREWICK IMPLEMENTED, DRAINING WELL. BED IS LOCKED AT THE LOWEST POSITION, BED ALARMS ACTIVE, SIDE RAILS UP X2 AND CALL LIGHT IS WITHIN REACH. WILL CONTINUE TO MONITOR.
--- NOTE | 2018-10-26 20:51 | Geriatric Progress Note ---
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 years (4) History of coronary artery stent placement (5) Cardiomyopathy (6) Hypertension (7) Lupus (systemic lupus erythematosus) (8) Osteoarthritis (9) Status post cataract extraction and insertion of intraocular lens of left eye (10) Status post cataract extraction and insertion of intraocular lens of right eye (11) Age-related macular degeneration (12) Hearing loss (13) Hypothyroidism (14) Depressed affect (15) Hallucinations, unspecified (16) Sleep disorder (17) Frequent falls (18) UTI (urinary tract infection) (19) Altered mental status (20) Acute alteration in mental status (21) Hyponatremia (22) Hypokalemia (23) Hypomagnesemia (24) Leukocytosis (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 Unclear if these changes are medication-associated or metabolic, but will make these changes. Increased bp, borderline heart rate, will decrease IVF, check labs including BNP , TFTs. Monitor. Given lack of intake, asked staff to offer Ensure to improve intake. Given worsening today, will need to monitor before d/c to [facility]. Discussed with: patient, hospital staff Subjective Interval Events Patient functionally worse today. Refused meals. Took medications. Tremor may be worse. Patient stated she could not eat because of the right arm , presumably from the shaking. Also seems more disoriented. Noted to have borderline tachycardia, increased bps. Took medications. Denies c/o, but then reports some tenderness to mid abdominal palpation. Labs with decreased BUN/Cr, alb. Stable wbc. C&S all negative. Constitutional: Denies: chills, sweats, fever Respiratory: Reports: shortness of breath - non-specific c/o of SOB Cardiovascular: Denies: chest pain Gastrointestinal/Abdominal: Denies: abdominal pain, diarrhea, nausea Genitourinary: Denies: dysuria Geriatric Geriatric Last 24 Hour Vital Signs Date Time Temp Pulse Resp B/P (MAP) Pulse Ox O2 Delivery O2 Flow Rate FiO2 10/26/18 16:00 98.3 108 18 158/81 (106) 95 10/26/18 12:00 97.7 105 18 144/81 (102) 95 10/26/18 09:00 Room Air 10/26/18 08:00 98.0 85 18 128/66 (86) 95 10/26/18 04:00 97.8 91 18 125/63 (83) 92 10/26/18 00:00 97.5 91 18 126/61 (82) 98 10/25/18 21:00 Room Air Intake and Output 10/25/18 10/26/18 19:00 07:00 Intake Total 1025 ml 1275 ml Balance 1025 ml 1275 ml IV Total 1025 ml 775 ml Other 500 ml Bladder Scan Volume Amount 188ml # Voids 2 Laboratory Tests Test 10/26/18 04:42 White Blood Count 10.2 K/UL (4.8-10.8) Red Blood Count 3.95 M/UL (4.20-5.40) L Hemoglobin 13.7 G/DL (12.0-16.0) Hematocrit 38.7 % (37.0-47.0) Mean Corpuscular Volume 98 FL (80-99) Mean Corpuscular Hemoglobin 34.6 PG (27.0-31.0) H Mean Corpuscular Hemoglobin Concent 35.4 G/DL (32.0-36.0) Red Cell Distribution Width 10.6 % (11.6-14.8) L Platelet Count 190 K/UL (150-450) Mean Platelet Volume 5.1 FL (6.5-10.1) L Neutrophils (%) (Auto) 66.8 % (45.0-75.0) Lymphocytes (%) (Auto) 13.0 % (20.0-45.0) L Monocytes (%) (Auto) 7.4 % (1.0-10.0) Eosinophils (%) (Auto) 11.2 % (0.0-3.0) H Basophils (%) (Auto) 1.6 % (0.0-2.0) Sodium Level 133 MMOL/L (136-145) L Potassium Level 4.1 MMOL/L (3.5-5.1) Chloride Level 102 MMOL/L (98-107) Carbon Dioxide Level 23 MMOL/L (21-32) Anion Gap 8 mmol/L (5-15) Blood Urea Nitrogen 3 mg/dL (7-18) L Creatinine 0.6 MG/DL (0.55-1.30) Estimat Glomerular Filtration Rate mL/min (>60) Glucose Level 100 MG/DL (74-106) Calcium Level 8.4 MG/DL (8.5-10.1) L Total Bilirubin 1.1 MG/DL (0.2-1.0) H Direct Bilirubin 0.2 MG/DL (0.0-0.3) Aspartate Amino Transf (AST/SGOT) 22 U/L (15-37) Alanine Aminotransferase (ALT/SGPT) 21 U/L (12-78) Alkaline Phosphatase 63 U/L (46-116) Total Protein 6.1 G/DL (6.4-8.2) L Albumin 2.5 G/DL (3.4-5.0) L Globulin 3.6 g/dL Albumin/Globulin Ratio 0.7 (1.0-2.7) L Current Medications Medications (Trade) Dose Ordered Sig/Mansi Route PRN Reason Start Time Stop Time Status Last Admin Dose Admin Bupropion HCl (Wellbutrin) 75 mg DAILY ORAL 10/25/18 09:00 11/24/18 08:59 10/26/18 09:29 Dextrose/ Electrolytes 1,000 ml @ 75 mls/hr [id number] IV 10/22/18 17:00 11/21/18 16:59 10/26/18 14:30 Donepezil HCl (Aricept) 10 mg QHS ORAL 10/18/18 21:00 11/17/18 20:59 10/25/18 20:50 Duloxetine HCl (Cymbalta) 20 mg DAILY ORAL 10/19/18 09:00 11/18/18 08:59 10/26/18 09:29 Levothyroxine Sodium (Synthroid) 75 mcg DAILY@0630 ORAL 10/21/18 06:30 11/20/18 06:29 10/26/18 05:40 Meropenem 500 mg/ Sodium Chloride 50 ml @ 100 mls/hr Q12HR@0200,1400 IVPB 10/26/18 02:00 10/31/18 01:59 10/26/18 14:26 Olanzapine (ZyPREXA) 2.5 mg DAILY ORAL 10/24/18 18:00 11/23/18 17:59 10/26/18 09:29 Pantoprazole (Protonix) 40 mg DAILY ORAL 10/19/18 09:00 11/18/18 08:59 10/26/18 09:29 Prednisone (predniSONE) 5 mg DAILY ORAL 10/23/18 09:00 11/22/18 08:59 10/26/18 09:29 Height (Feet): 5 Height (Inches): 2.00 Weight (Pounds): 106 General Appearance: no apparent distress, alert, other - more flat and disoriented. Head: normocephalic Eyes: bilateral anicteric ENT: normal voice Respiratory: lungs clear Cardiovascular: regular rate, rhythm, no JVD - no HJR Gastrointestinal: normal bowel sounds, soft, no mass, no organomegaly, non- distended, no rebound, tenderness - no objective correlate to c/o on palpation, with no guarding Musculoskeletal: no calf tenderness Edema: no edema noted Generalized Neurologic: other - intentional tremor, ? apraxia Stephan Cobb MD Oct 26, 2018 20:51
[2018-10-26] MEDS: Donepezil 10mg tab ORAL SCH (20:55)
[2018-10-27] VITALS: BP 142/71
[2018-10-27 04:00] VITALS: BP 128/67
--- NOTE | 2018-10-27 04:56 | NUR ---
NURSE NOTES: RECEIVED ORDERS FROM TO ENCOURAGE PT TO DRINK ENSURE. PT WAS ABLE TO FINISH ABOUT 180CC. FED WITH TEASPOON. PT WAS UNABLE TO USE STRAW. DELAYED SWALLOWING, POCKETED FLUID INSIDE MOUTH. NEEDS ENCOURAGEMENT AND REMINDER TO SWALLOW. INCREASE CONFUSION, SLURRED SPEECH AND RAMBLING, UNABLE TO UNDERSTAND PT. IS AWARE OF INCREASED BP, HR AND TREMORS.
[2018-10-27 05:14] LABS: BASOPHILS % (AUTO) 1.2 % (0.0-2.0); EOSINOPHILS % (AUTO) 7.2 % (0.0-3.0); HEMATOCRIT 47.8 % (37.0-47.0); HEMOGLOBIN 16.5 G/DL (12.0-16.0); LYMPHOCYTES % (AUTO) 10.4 % (20.0-45.0); MEAN CORPUSCULAR VOLUME 99 FL (80-99); MONOCYTES % (AUTO) 6.1 % (1.0-10.0); NEUTROPHILS % (AUTO) 75.2 % (45.0-75.0); PLATELET COUNT 211 K/UL (150-450); RED BLOOD COUNT 4.85 M/UL (4.20-5.40); RED CELL DISTRIBUTION WIDTH 10.8 % (11.6-14.8); WHITE BLOOD COUNT 12.2 K/UL (4.8-10.8)
[2018-10-27 06:00] LABS: ANION GAP 9 mmol/L (5-15); BLOOD UREA NITROGEN 5 mg/dL (7-18); CALCIUM 9.4 MG/DL (8.5-10.1); CARBON DIOXIDE 24 MMOL/L (21-32); CHLORIDE 100 MMOL/L (98-107); CREATININE 0.7 MG/DL (0.55-1.30); POTASSIUM 4.1 MMOL/L (3.5-5.1); SODIUM 133 MMOL/L (136-145)
[2018-10-27] MEDS: D5NS w/KCl 40mEq 1000ml 1,000 ML IV SCH ×2 (06:39→13:37)
--- NOTE | 2018-10-27 07:43 | NUR ---
NURSE NOTES: received report from Tori,RN. patient in bed. alert x 1 to 2. forgetful. verbally responsive. no respiratory distress noted on room air. no pain at this time. IV on RFA running d5ns @50/hr. encouraged po intake as tolerated. assisted take ensure drink. bed in the lowest position. call light within reach. alarm on. will continue to provide plan of care.
[2018-10-27 08:00] VITALS: BP_SYST 120; BP_SYST 146; BP_DIAS 54; BP_DIAS 90
--- NOTE | 2018-10-27 08:13 | NUR ---
HAND-OFF: Report given to DICK MURRY.
[2018-10-27] MEDS: BuPROPion 75mg Tab ORAL SCH (08:36)
--- NOTE | 2018-10-27 08:36 | NUR ---
NURSE NOTES: patient refused to take medications. RN explained risks and benefits. encouraged to take po intake as tolerated. refused to have breakfast. no appetite at this time. alert. weak. no respiratory distress noted. no c/o pain at this time. will continue to monitor patient condition.
--- NOTE | 2018-10-27 11:43 | NUR ---
NURSE NOTES: received call from DR. Sorenson regarding patient condition. notified MD patient refused to breakfast and medications. MD wants RN monitor patient right hand tremor. got d/c order of post void residual d/t patient has been voiding well. order noted and carried out.
[2018-10-27 12:00] VITALS: BP 141/91
--- NOTE | 2018-10-27 13:10 | NUR ---
REFERRED FOR SWALLOW EVAL BY DR TERAN, SEE FULL REPORT IN [facility] ACTIVITY SECTION. DYSPHAGIA RISK FACTORS FOR THIS 88 Y.O.F. ACUTE ISSUES: MULTIFACTORIAL FTT, 40 LB WT LOSS IN 18 MONTHS (SINCE MAR 2017), INCREASED AMS MORE CONFUSED ON DEMENTIA MEDS, REFUSING PO BUT ATE LAST WEEK PER RN, UTI, CXR SLIGHT INCREASE IN INTERSTITIAL PROMINENCE NO FOCAL CONSOLIDATION. H/O ANOREXIA, GI D/O, HTN, TIA [address] HEAD SCAN NEGATIVE ACUTE BUT HAS MODERATE BRAIN ATROPHY, MN, PSYCH HALLUCINATIONS REFUSES MEDS AND PO ISSUES (ZYPREXA) POLST/AD NOT IN CHART. ? DIET PRIOR TO ADMIT, NOW ON KEN MECH SOFT CHOPPED DIET AND THIN LIQUIDS (LACTOSE INTOLERANCE) PER RD OK TO LIBERALIZE DIET AND GIVE SOY MILK. DISLIKES ENSURE. INTAKE VERY POOR REFUSES AND ONLY TAKES 10-25% IF SHE TAKES IT. 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 ALERT BUT VOICE IS VARIABLY BREATHY TO LOUDER AND CLEAR. TENDS TO MOUTH WORDS. INITIAL IMPRESSIONS: AT RISK FOR A DYSPHAGIA AND POSSIBLE SILENT ASPIRATION BUT PATIENT REFUSING MOST PO INTAKE TOOK TSP WATER THEN SPIT IT OUT. POOR PO INTAKE TONGUE SURFACE LOOKS WHITE, R/O THRUSH, REFUSED ORAL COMMANDS. ADEQUATE DENTITION AND LIPS RECOMMENDATIONS: CONSIDER NONORAL FEEDINGS ONLY IF PT IS RECEPTIVE GIVEN POOR PO INTAKE AND PT CONSIDER R/O ORAL THRUSH OR COMPLETE ORAL CARE IF SHE ALLOWS CONSIDER CALORIE COUNT AND SEND HIGH GAIL SUP THAT SHE LIKES (DISLIKES ENSURE BUT MAY LIKE SOY MILKSHAKES). CONTINUE WITH CURRENT DIET/LIQUIDS ONLY IF TOLERATED. WILL D/C FROM SKILLED ST AT THIS TIME SINCE PT REFUSING TO PARTICIPATE. PLEASE RECONSULT IF MORE RECEPTIVE TO SWALLOW EVAL, TREATMENT, MOD BARIUM SWALLOW STUDY, AND VOICE/SPEECH EVAL. D/W RN AND BRIEFLY D/W DR TERAN
--- NOTE | 2018-10-27 13:19 | Geriatric Progress Note ---
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 years (4) History of coronary artery stent placement (5) Cardiomyopathy (6) Hypertension (7) Lupus (systemic lupus erythematosus) (8) Osteoarthritis (9) Status post cataract extraction and insertion of intraocular lens of left eye (10) Status post cataract extraction and insertion of intraocular lens of right eye (11) Age-related macular degeneration (12) Hearing loss (13) Hypothyroidism (14) Depressed affect (15) Hallucinations, unspecified (16) Sleep disorder (17) Frequent falls (18) UTI (urinary tract infection) (19) Altered mental status (20) Acute alteration in mental status (21) Hyponatremia (22) Hypokalemia (23) Hypomagnesemia (24) Leukocytosis (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 Will need to hold and resume at lower dose. Discussed with son, possibly patient was not complying with prescribed thyroid dose at [facility], so supplementation may be to high. This may explain the worsening tremor and delirium. Whether other factors are contributing is abnormal mental status is unclear. Will attempt to minimize meds and allow delirium to clear. Long discussion with son about status, prognosis. Will attempt to stabilize sufficiently to allow d/c to SNF, but given hr and bp need to postpone. Discussed with: patient, family, hospital staff Subjective Interval Events Patient acts as if mute. However, when asked to sing "lalalala" and say "hello " is able to do so. 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 Per staff refusing intake and refusing medications. Also reports tongue with coating. Bp and hr are further elevated. Labs remarkable for elevated FT4 and considerably decreased TSH though still elevated. Subjective Unable to elicit coherent responses. Geriatric Geriatric Last 24 Hour Vital Signs Date Time Temp Pulse Resp B/P (MAP) Pulse Ox O2 Delivery O2 Flow Rate FiO2 10/27/18 12:00 97.8 110 19 141/91 (108) 98 10/27/18 09:00 Room Air 10/27/18 08:00 97.3 109 18 120/54 (76) 99 10/27/18 08:00 97.3 109 18 146/90 (108) 99 10/27/18 04:00 98.3 92 20 128/67 (87) 99 10/27/18 00:00 98.3 95 20 142/71 (94) 97 10/26/18 21:00 Room Air 10/26/18 20:00 97.5 96 20 144/79 (100) 97 10/26/18 16:00 98.3 108 18 158/81 (106) 95 Intake and Output 10/26/18 10/27/18 19:00 07:00 Intake Total 1075 ml 640 ml Output Total 350 ml Balance 725 ml 640 ml Intake Oral 200 ml 190 ml IV Total 875 ml 450 ml Output Urine Total 350 ml Bladder Scan Volume Amount 192 # Voids 3 # Bowel Movements 4 Laboratory Tests Test 10/27/18 04:39 White Blood Count 12.2 K/UL (4.8-10.8) H Red Blood Count 4.85 M/UL (4.20-5.40) Hemoglobin 16.5 G/DL (12.0-16.0) H Hematocrit 47.8 % (37.0-47.0) H Mean Corpuscular Volume 99 FL (80-99) Mean Corpuscular Hemoglobin 34.1 PG (27.0-31.0) H Mean Corpuscular Hemoglobin Concent 34.6 G/DL (32.0-36.0) Red Cell Distribution Width 10.8 % (11.6-14.8) L Platelet Count 211 K/UL (150-450) Mean Platelet Volume 5.0 FL (6.5-10.1) L Neutrophils (%) (Auto) 75.2 % (45.0-75.0) H Lymphocytes (%) (Auto) 10.4 % (20.0-45.0) L Monocytes (%) (Auto) 6.1 % (1.0-10.0) Eosinophils (%) (Auto) 7.2 % (0.0-3.0) H Basophils (%) (Auto) 1.2 % (0.0-2.0) Sodium Level 133 MMOL/L (136-145) L Potassium Level 4.1 MMOL/L (3.5-5.1) Chloride Level 100 MMOL/L (98-107) Carbon Dioxide Level 24 MMOL/L (21-32) Anion Gap 9 mmol/L (5-15) Blood Urea Nitrogen 5 mg/dL (7-18) L Creatinine 0.7 MG/DL (0.55-1.30) Estimat Glomerular Filtration Rate mL/min (>60) Glucose Level 118 MG/DL (74-106) H Calcium Level 9.4 MG/DL (8.5-10.1) Magnesium Level 1.7 MG/DL (1.8-2.4) L Pro-B-Type Natriuretic Peptide 1513 pg/mL (0-125) H Thyroid Stimulating Hormone (TSH) 4.989 uiU/mL (0.358-3.740) Free Thyroxine 1.48 NG/DL (0.76-1.46) H Triiodothyonine (T3) Pending Current Medications Medications (Trade) Dose Ordered Sig/Mansi Route PRN Reason Start Time Stop Time Status Last Admin Dose Admin Bupropion HCl (Wellbutrin) 75 mg DAILY ORAL 10/25/18 09:00 11/24/18 08:59 10/26/18 09:29 Dextrose/ Electrolytes 1,000 ml @ 75 mls/hr [id number] IV 10/27/18 20:45 11/25/18 20:44 UNV Donepezil HCl (Aricept) 10 mg QHS ORAL 10/18/18 21:00 11/17/18 20:59 10/26/18 20:55 Fluconazole 50 ml @ 50 mls/hr ONCE ONCE IVPB 10/27/18 13:15 10/27/18 14:14 UNV Meropenem 500 mg/ Sodium Chloride 50 ml @ 100 mls/hr Q12HR@0200,1400 IVPB 10/26/18 02:00 10/31/18 01:59 10/27/18 02:20 Pantoprazole (Protonix) 40 mg DAILY ORAL 10/19/18 09:00 11/18/18 08:59 10/26/18 09:29 Prednisone (predniSONE) 5 mg DAILY ORAL 10/23/18 09:00 11/22/18 08:59 10/26/18 09:29 Height (Feet): 5 Height (Inches): 2.00 Weight (Pounds): 106 General Appearance: other - appears delirious. Head: normocephalic Eyes: bilateral anicteric ENT: other - tongue with coating suspicious for thrush. Neck: full range of motion, no mass Respiratory: lungs clear Cardiovascular: tachycardia Gastrointestinal: normal bowel sounds, non tender, soft, no mass, no organomegaly, non-distended Edema: no edema noted Generalized Neurologic: no new focality Stephan Sorenson MD Oct 27, 2018 13:19
[2018-10-27 14:52] LABS: BASOPHILS % (AUTO) 1.2 % (0.0-2.0); EOSINOPHILS % (AUTO) 4.7 % (0.0-3.0); HEMATOCRIT 42.6 % (37.0-47.0); LYMPHOCYTES % (AUTO) 8.6 % (20.0-45.0); MEAN CORPUSCULAR VOLUME 98 FL (80-99); MONOCYTES % (AUTO) 6.7 % (1.0-10.0); NEUTROPHILS % (AUTO) 78.8 % (45.0-75.0); PLATELET COUNT 201 K/UL (150-450); RED BLOOD COUNT 4.34 M/UL (4.20-5.40); RED CELL DISTRIBUTION WIDTH 10.4 % (11.6-14.8); WHITE BLOOD COUNT 12.4 K/UL (4.8-10.8)
[2018-10-27 15:00] LABS: ANION GAP 7 mmol/L (5-15); BLOOD UREA NITROGEN 8 mg/dL (7-18); CALCIUM 9.2 MG/DL (8.5-10.1); CARBON DIOXIDE 26 MMOL/L (21-32); CHLORIDE 103 MMOL/L (98-107); CREATININE 0.7 MG/DL (0.55-1.30); POTASSIUM 4.7 MMOL/L (3.5-5.1); SODIUM 136 MMOL/L (136-145)
--- NOTE | 2018-10-27 15:28 | Infectious Diseases Prog Note ---
Assessment/Plan Assessment/Plan ASSESSMENT AND PLAN: 1. esbl e.coli uti/complicated uti, leukocytosis, possible sepsis, thrush - meropenem - day # 6/10 (can substitute ertapenem 1 gm daily if less frequent dosing needed) - clinically improved, leukocytosis persists but improved - MRI noted and c/w chronic cystitis - monitor labs/wbc - on diflucan for thrush - d/w Dr. Sorenson 2. The patient has hyponatremia. 3. The patient is not anemic. 4. The patient has history of lupus. 5. Possible rheumatoid arthritis. 6. History of steroids including prednisone. 7. Coronary artery disease and ID. 8. Hypertension. 9. Hypothyroidism. 10. Osteoarthritis. 11. Decreased visual acuity. 12. GERD. 13. CVA. 14. History of recurrent UTI. 15. Neuropathic pain. 16. Allergies to Cipro, acetaminophen, oxycodone, penicillin, plastic tape, iodine, and multiple other allergies. 17. Social history negative. 18. Family history noncontributory. 19. MAR is noted. 20. Case discussed with RN. 21. Case discussed with Dr. Stephan Sroenson. 22. Continue treatment per primary consultants. Subjective Constitutional: Reports: other - alert and respons; Denies: fever HEENT: Denies: congestion Respiratory: Denies: shortness of breath Cardiovascular: Denies: chest pain Gastrointestinal/Abdominal: Denies: nausea, vomiting, diarrhea Genitourinary: Reports: other - no nash Neurologic: Denies: headache Psychiatric: Denies: depression Skin: Denies: rash Hematologic: Denies: bleeding Musculoskeletal: Denies: pain Allergies: Coded Allergies: ACETAMINOPHEN (Verified Allergy, Unknown, 10/18/18) CIPROFLOXACIN (Verified Allergy, Unknown, 10/18/18) CODEINE (Verified Allergy, Unknown, 10/18/18) IBUPROFEN (Verified Allergy, Unknown, 10/18/18) IODINE (Verified Allergy, Unknown, 10/18/18) NAPROXEN (Verified Allergy, Unknown, 10/18/18) OXYCODONE (Verified Allergy, Unknown, 10/18/18) PENICILLINS (Verified Allergy, Unknown, 10/18/18) Shrimp (Verified Allergy, Unknown, 10/18/18) Uncoded Allergies: BRUSSEL SPROUTS (Allergy, Unknown, 10/18/18) LACTOSE INTOLERANT (Allergy, Unknown, 10/18/18) PLASTIC TAPE (Allergy, Unknown, 10/18/18) lactose intolerance (Allergy, Unknown, 10/18/18) Objective Vital Signs Last 24 Hour Vital Signs Date Time Temp Pulse Resp B/P (MAP) Pulse Ox O2 Delivery O2 Flow Rate FiO2 10/27/18 12:00 97.8 110 19 141/91 (108) 98 10/27/18 09:00 Room Air 10/27/18 08:00 97.3 109 18 120/54 (76) 99 10/27/18 08:00 97.3 109 18 146/90 (108) 99 10/27/18 04:00 98.3 92 20 128/67 (87) 99 10/27/18 00:00 98.3 95 20 142/71 (94) 97 10/26/18 21:00 Room Air 10/26/18 20:00 97.5 96 20 144/79 (100) 97 10/26/18 16:00 98.3 108 18 158/81 (106) 95 Height (Feet): 5 Height (Inches): 2.00 Weight (Pounds): 106 General Appearance: no acute distress HEENT: normocephalic, atraumatic, anicteric, mucous membranes moist Respiratory/Chest: lungs clear, normal breath sounds, no respiratory distress Cardiovascular: normal rate, regular rhythm, no gallop/murmur, no JVD Abdomen: normal bowel sounds, soft, non tender, no organomegaly, non distended Genitourinary: other - no nash Extremities: no cyanosis Skin: no rash Neurologic/Psychiatric: 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 No evidence of biliary ductal dilatation, choledocholithiasis or gallstones. Trabeculation and wall thickening of the urinary bladder consistent with chronic cystitis. Chest x-ray - IMPRESSION: Slight increased interstitial prominence. No focal consolidation. Microbiology Date/Time Source Procedure Growth Status 10/22/18 07:30 Blood Blood Culture - Preliminary NO GROWTH AFTER 72 HOURS Resulted 10/18/18 12:24 Nasal Nares MRSA Culture - Final NO METHICILLIN RESISTANT STAPH AUREUS... Complete 10/22/18 13:35 Straight Cath Urine Culture - Final NO GROWTH AFTER 48 HOURS Complete 10/18/18 12:24 Rectum VRE Culture - Final NO VANCOMYCIN RESISTANT ENTEROCOCCUS ... Complete 10/18/18 12:24 Rectum - Final NO CARBAPENEM-RESISTANT ENTEROBACTERI... Complete Laboratory Tests Test 10/27/18 04:39 10/27/18 14:20 White Blood Count 12.2 K/UL (4.8-10.8) H 12.4 K/UL (4.8-10.8) H Red Blood Count 4.85 M/UL (4.20-5.40) 4.34 M/UL (4.20-5.40) Hemoglobin 16.5 G/DL (12.0-16.0) H 15.0 G/DL (12.0-16.0) Hematocrit 47.8 % (37.0-47.0) H 42.6 % (37.0-47.0) Mean Corpuscular Volume 99 FL (80-99) 98 FL (80-99) Mean Corpuscular Hemoglobin 34.1 PG (27.0-31.0) H 34.6 PG (27.0-31.0) H Mean Corpuscular Hemoglobin Concent 34.6 G/DL (32.0-36.0) 35.3 G/DL (32.0-36.0) Red Cell Distribution Width 10.8 % (11.6-14.8) L 10.4 % (11.6-14.8) L Platelet Count 211 K/UL (150-450) 201 K/UL (150-450) Mean Platelet Volume 5.0 FL (6.5-10.1) L 5.2 FL (6.5-10.1) L Neutrophils (%) (Auto) 75.2 % (45.0-75.0) H 78.8 % (45.0-75.0) H Lymphocytes (%) (Auto) 10.4 % (20.0-45.0) L 8.6 % (20.0-45.0) L Monocytes (%) (Auto) 6.1 % (1.0-10.0) 6.7 % (1.0-10.0) Eosinophils (%) (Auto) 7.2 % (0.0-3.0) H 4.7 % (0.0-3.0) H Basophils (%) (Auto) 1.2 % (0.0-2.0) 1.2 % (0.0-2.0) Sodium Level 133 MMOL/L (136-145) L 136 MMOL/L (136-145) Potassium Level 4.1 MMOL/L (3.5-5.1) 4.7 MMOL/L (3.5-5.1) Chloride Level 100 MMOL/L (98-107) 103 MMOL/L (98-107) Carbon Dioxide Level 24 MMOL/L (21-32) 26 MMOL/L (21-32) Anion Gap 9 mmol/L (5-15) 7 mmol/L (5-15) Blood Urea Nitrogen 5 mg/dL (7-18) L 8 mg/dL (7-18) Creatinine 0.7 MG/DL (0.55-1.30) 0.7 MG/DL (0.55-1.30) Estimat Glomerular Filtration Rate mL/min (>60) mL/min (>60) Glucose Level 118 MG/DL (74-106) H 126 MG/DL (74-106) H Calcium Level 9.4 MG/DL (8.5-10.1) 9.2 MG/DL (8.5-10.1) Magnesium Level 1.7 MG/DL (1.8-2.4) L Pro-B-Type Natriuretic Peptide 1513 pg/mL (0-125) H Thyroid Stimulating Hormone (TSH) 4.989 uiU/mL (0.358-3.740) Free Thyroxine 1.48 NG/DL (0.76-1.46) H Triiodothyonine (T3) Pending Current Medications Medications (Trade) Dose Ordered Sig/Mansi Route PRN Reason Start Time Stop Time Status Last Admin Dose Admin Bupropion HCl (Wellbutrin) 75 mg DAILY ORAL 10/25/18 09:00 11/24/18 08:59 10/26/18 09:29 Dextrose/ Electrolytes 1,000 ml @ 75 mls/hr [id number] IV 10/27/18 13:18 11/26/18 13:17 10/27/18 13:37 Donepezil HCl (Aricept) 10 mg QHS ORAL 10/18/18 21:00 11/17/18 20:59 10/26/18 20:55 Fluconazole 50 ml @ 50 mls/hr ONCE IV 10/27/18 15:00 10/27/18 17:00 Meropenem 500 mg/ Sodium Chloride 50 ml @ 100 mls/hr Q12HR@0200,1400 IVPB 10/26/18 02:00 10/31/18 01:59 10/27/18 13:37 Pantoprazole (Protonix) 40 mg DAILY ORAL 10/19/18 09:00 11/18/18 08:59 10/26/18 09:29 Prednisone (predniSONE) 5 mg DAILY ORAL 10/23/18 09:00 11/22/18 08:59 10/26/18 09:29 Na Huang MD Oct 27, 2018 15:28
[2018-10-27 16:00] VITALS: BP 156/109
[2018-10-27] MEDS: Carvedilol 6.25mg Tab ORAL SCH (18:56)
--- NOTE | 2018-10-27 19:30 | NUR ---
HAND-OFF: Report given to DICK Almaraz.
--- NOTE | 2018-10-27 19:54 | NUR ---
NURSE NOTES: RECEIVED PATIENT LYING IN BED, AWAKE, NON VERBAL, REALITY ORIENTATION DURING ASSESSMENT. REQUIRE MAXIMUM ASSISTANCE WITH ADL'S. NO SIGNS AND SYMPTOMS OF ACUTE CARDIO RESPIRATORY DISTRESS/SHORTNESS OF BREATH, NO EDEMA NOTED, NOTED WITH BILATERAL FOOT DROP. ABDOMEN SOFT/NON DISTENDED, POOR APPETITE, NOTED WITH AUDIBLE BOWEL SOUNDS, NO REPORT OF N/V/D. SIDE RAILS UP X3/BED IN LOWEST POSITION FOR SAFETY, FREQUENT ROUNDING FOR SAFETY/NEEDS. NAD.
[2018-10-27 20:00] VITALS: BP 149/85
[2018-10-27] MEDS: Donepezil 10mg tab ORAL SCH (21:53)
[2018-10-28] VITALS: BP 111/68
[2018-10-28] MEDS: D5NS w/KCl 40mEq 1000ml 1,000 ML IV SCH ×3 (02:38→21:22)
--- NOTE | 2018-10-28 06:28 | NUR ---
NURSE NOTES: RESTED WELL, NO SIGNIFICANT CHANGE OF CONDITION NOTED THROUGHOUT THE NIGHT. SAFETY MAINTAINED. NAD.
--- NOTE | 2018-10-28 07:54 | NUR ---
NURSE NOTES: received report from DICK Almaraz. patient in bed. alert. forgetful at times. verbally responsive. no respiratory distress noted. no pain at this time. IV on RAC running d5bs with kcl 40meq @75. refused to eat breakfast. drank a cup of water. bed in the lowest position. call light within reach. alarm on. will continue to provide plan of care.
[2018-10-28 08:00] VITALS: BP 143/71
[2018-10-28] MEDS: Carvedilol 6.25mg Tab ORAL SCH ×2 (09:15→21:22)
--- NOTE | 2018-10-28 11:44 | NUR ---
RD ASSESSMENT & RECOMMENDATIONS SEE CARE ACTIVITY FOR COMPLETE ASSESSMENT DAILY ESTIMATED NEEDS: Needs based on wt loss/ 48kg 28-33 kcals/kg 2445-5536 total kcals 1-1.5 g protein/kg 48-72 g total protein 25-30 mL/kg 5398-5595 total fluid mLs NUTRITION DIAGNOSIS: Unintentional wt loss R/T poor appetite as evidenced by pt reports significant wt loss of 34lbs/24.6% in <7-8 months, currently w/ poor PO intake as documented. CURRENT DIET:REGULAR, mech soft chopped PO DIET RECOMMENDATIONS: Liberalized REGULAR diet w/ poor PO intake(texture per SWIM INSTRUCTOR or as tolerated) ADDITIONAL RECOMMENDATIONS: * Calibrated bedscale wt for accurate CBW * Weekly wt monitoring given possible h/o significant wt loss * Consider appetite stimulant- admitted w/ poor PO, cont w/ poor PO * Soymilk w/ breakfast, Snacks BID in b/w meals (pt is lactose intolerant, does not want any dairy products nor Ensure) * MVI x 1 as supplement * Add snacks in b/w meals, pt does not want Ensure
[2018-10-28 12:00] VITALS: BP 116/65
--- NOTE | 2018-10-28 12:54 | NUR ---
NURSE NOTES: received order from Dr. Sorenson patient is ready for discharge tomorrow. vs stable. patient had PT this morning. sitting in chair. consumed 50% of lunch. less tremor than yesterday. order read back and confirmed. order noted and carried out.
--- NOTE | 2018-10-28 12:59 | NUR ---
NURSE NOTES: called [facility] [place]. left message for Leela. patient is ready for discharge tomorrow.
[2018-10-28 16:00] VITALS: BP 140/68
--- NOTE | 2018-10-28 17:26 | NUR ---
DISCHARGE PLANNING DISCHARGE ORDER NOTED Patient has been accepted to; [facility] [address] [address] Bed: 122-A Skilled [phone] for Nurse to Nurse report No [facility] transportation setup, patient is leaving Wednesday, Transfer sheet given to nurse.
--- NOTE | 2018-10-28 18:46 | Geriatric Progress Note ---
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 years (4) History of coronary artery stent placement (5) Cardiomyopathy (6) Hypertension (7) Lupus (systemic lupus erythematosus) (8) Osteoarthritis (9) Status post cataract extraction and insertion of intraocular lens of left eye (10) Status post cataract extraction and insertion of intraocular lens of right eye (11) Age-related macular degeneration (12) Hearing loss (13) Hypothyroidism (14) Depressed affect (15) Hallucinations, unspecified (16) Sleep disorder (17) Frequent falls (18) UTI (urinary tract infection) (19) Altered mental status (20) Acute alteration in mental status (21) Hyponatremia (22) Hypokalemia (23) Hypomagnesemia (24) Leukocytosis (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 Still likely will require some mood stabilizer, antidepressant or antipsychotic , but can delay till delirium has cleared as much as possible. May also require appetite stimulant as well, but observe as delirium clears. Expect d/c in am to [facility]. Discussed with: patient, hospital staff Subjective Interval Events Patient alert, responds, but speech is garbled jargon at present. However, patient can be interrupted and will answer yes or no. Denies pain. Per staff, more cooperative, ambulated with P.T., eating minimal amount but refusing dinner. HR, bp better controlled today. Subjective Unable to elicit coherent responses. Geriatric Geriatric Last 24 Hour Vital Signs Date Time Temp Pulse Resp B/P (MAP) Pulse Ox O2 Delivery O2 Flow Rate FiO2 10/28/18 16:00 98.0 70 20 140/68 (92) 96 10/28/18 12:00 98.6 91 20 116/65 (82) 96 10/28/18 09:15 79 143/71 10/28/18 09:00 Room Air 10/28/18 08:00 98.0 79 20 143/71 (95) 96 10/28/18 00:00 97.6 90 18 111/68 (82) 96 10/27/18 21:00 Room Air 10/27/18 20:00 97.3 114 18 149/85 (106) 96 10/27/18 18:56 110 156/109 Intake and Output 10/27/18 10/28/18 19:00 07:00 Intake Total 560 ml 1055 ml Output Total 700 ml Balance 560 ml 355 ml Intake Oral 60 ml 180 ml IV Total 500 ml 875 ml Output Urine Total 700 ml # Voids 2 Current Medications Medications (Trade) Dose Ordered Sig/Mansi Route PRN Reason Start Time Stop Time Status Last Admin Dose Admin Amlodipine Besylate (Norvasc) 5 mg Q6H PRN ORAL For High Blood Pressure 10/27/18 18:30 11/26/18 18:29 Carvedilol (Coreg) 6.25 mg EVERY 12 HOURS ORAL 10/27/18 18:50 11/26/18 18:49 10/28/18 09:15 Dextrose/ Electrolytes 1,000 ml @ 75 mls/hr [id number] IV 10/27/18 13:18 11/26/18 13:17 10/28/18 05:00 Donepezil HCl (Aricept) 10 mg QHS ORAL 10/18/18 21:00 11/17/18 20:59 10/27/18 21:53 Meropenem 500 mg/ Sodium Chloride 50 ml @ 100 mls/hr Q12HR@0200,1400 IVPB 10/26/18 02:00 11/01/18 23:00 10/28/18 14:35 Pantoprazole (Protonix) 40 mg DAILY ORAL 10/19/18 09:00 11/18/18 08:59 10/28/18 09:15 Prednisone (predniSONE) 5 mg DAILY ORAL 10/23/18 09:00 11/22/18 08:59 10/28/18 09:15 Height (Feet): 5 Height (Inches): 2.00 Weight (Pounds): 106 General Appearance: alert - still delirious, does follow simple instructions. Head: normocephalic Eyes: bilateral anicteric ENT: other - hypophoni Neck: full range of motion, no mass Respiratory: lungs clear Cardiovascular: regular rate, rhythm Gastrointestinal: normal bowel sounds, non tender, soft, no mass, no organomegaly, non-distended Musculoskeletal: no calf tenderness Edema: no edema noted Generalized Neurologic: no new focality - raises all extremities to instruction., other - 1 /2 error in finger counting but self corrects. Stephan Sorenson MD Oct 28, 2018 18:46
--- NOTE | 2018-10-28 19:03 | Discharge Summary ---
Discharge Summary Discharge Summary _ Date of Admission: October 18, 2018. Date of Discharge: October 29, 2018. Discharge Diagnoses: (1) Urinary tract infection, ESBL E. 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 (9) History of coronary artery stent placement (10) Cardiomyopathy, EF 45% (11) Hypertension (12) Lupus (systemic lupus erythematosus) (13) Osteoarthritis (14) Status post cataract extraction and insertion of intraocular lens of left eye (15) Status post cataract extraction and insertion of intraocular lens of right eye (16) Age-related macular degeneration, with legal blindness right eye (17) Hearing loss (18) Sleep disorder (19) Frequent falls (20) Gait abnormality (21) Generalized weakness (22) Hyponatremia, resolved (23) Hypokalemia, resolved (24) Hypomagnesemia (25) Adult failure to thrive (26) Mild hyperbilirubinemia Medications: 1. Amlodipine 5mg q6 prn systolic>145. 2. Coreg 6.125mg q12. 3. Prednisone 5mg daily. 4. Pantoprazole 40mg daily. 5. Donepezil 10mg qhs. Allergies: Multiple intolerances reported, unclear extent and nature of reactions - Acetaminophen, ciprofloxacin, ibuprofen, naproxen, oxycodone, penicillins, lactose intolerance, brussel sprouts. History of Present Illness: Ms. Hughes is an 88-year-old woman who was brought to emergency department by her son because of rapidly accelerating weakness multiple falls at home and a course consistent with adult failure to thrive. She was noted to have patchy cognitive deficits with a question of superimposed psychiatric symptoms, as well as personality disorder historically. In the emergency room, Ms. Hughes was noted to have a partially treated urinary tract infection, periorbital and thigh contusions and ecchymoses associated with several recent falls, and altered mental status with symptoms of paranoia. She was admitted for further evaluation and treatment. Details of the history and physical examination are per the dictation of October 18, 2018. Hospital Course: Ms. Hughes was given empiric ceftriaxone in the emergency department and this was initially continued on the floor. Subsequently, urine culture returned with ESBL E. coli resistant to ceftriaxone. Blood cultures were negative and the original urinalysis had insignificant pyuria but this represented a partially treated infection given that the patient did receive oral nitrofurantoin as an outpatient. However given the patient's presentation there was concern for a component of sepsis contributing on admission. The patient was seen in infectious disease consultation by Dr. Na Huang, who placed the patient on meropenem and the patient completed an intravenous course in the hospital. Subsequent abdominal and pelvic MRI did not reveal abscess or anatomic changes in the upper tracts, but there was evidence of a trabeculated bladder with possible chronic urinary tract infections. Ms. Hughes was reportedly hypothyroid in the past. There was confusion about the medication list on admission, with the initial list suggesting the patient was not on thyroid supplementation. TSH return in the range of 22 suggesting hypothyroidism, the patient was initially then placed on 25 mcg daily of levothyroxine supplementation. However her son reported that she had been placed on 75 mcg of levothyroxine prior to admission. Therefore the dose was increased to 75 mcg. Repeat thyroid function tests approximately week after admission returned with a significantly decreased TSH as well as a borderline elevated free T4. This was accompanied by progressive elevation of blood pressure, tachycardia, and tremor. It was felt that the patient had now become iatrogenically hyperthyroid, and therefore the levothyroxine was discontinued. Follow-up thyroid function testing will need to be done as an outpatient with more gradual titration supplementation as required. It was also felt that the hyperthyroid state might have been contributing to the patient's rapidly fluctuating behavioral status and her anorexia. Initially the patient's blood pressures were also on the low side, and therefore her multiple medications including spironolactone, amlodipine, and carvedilol were discontinued. Patient tolerated this well until her blood pressure heart rate began to rise likely due to the thyroid supplementation, at which time of carvedilol was reinstituted and the patient was also given as needed amlodipine. There was no evidence of congestive heart failure on the patient's chest x-ray or clinically, although the patient's proBNP was considerably elevated through the entire course. Cardiac echo revealed an estimated ejection fraction 45%, but the poor quality of the images made segmental defects difficult to ascertain. Patient had a very unstable course in terms of her cognition and behavior. Initial brain imaging failed to reveal any acute abnormality, the patient fortunately alternating her behavior on a daily basis from being relatively responsive to being either extremely confused or lethargic. Interventions included a trial of Rozerem which was discontinued because of possible lethargy , as well as the gradual discontinuation of the patient's Namenda and gabapentin. The cause of what appeared to be paranoia and a possible psychotic depression, the patient was placed on Lexapro but appeared to become more confused and developed more severe hyponatremia. Therefore this medication was discontinued, as well as Cymbalta later when the hyponatremia persisted. Wellbutrin was attempted, but because of persistent confusion and the tremulousness this was also discontinued. Because of her paranoia and apparent psychosis Zyprexa was attempted, but again because of the increased tremulousness this was discontinued. At the time of discharge patient's medications have been pruned as much as possible in order to attempt to minimize any drug effect contributing to her apparent delirium. The plan will be to reinstitute psychoactive medication as necessary once patient's overall status improves. Patient oral intake was also quite variable tending to become worse later in the course. She required intravenous hydration and electrolyte supplementation. It is hoped that a component of the patient's anorexia may be associated with the oversupplementation of thyroid, but appetite stimulants may need to be considered in the future. The patient's response to attempts to mobilize with physical therapy also was quite variable corresponding to the alterations in her mental status, at this point the patient has demonstrated some willingness to get out of bed and attempt to ambulate with physical therapy. Hopefully this can be [facility] the [facility] facility. On day of discharge patient's intake and responsiveness were reported as continuing to slowly improve. Mild hyperbilirubinemia was reported, and will need to f/u regarding whether this is transient associated with poor intake, or possibly represents primary hepatobiliary pathology. MRI had not revealed acute pathology early during admission. Extended discussions were held with the patient's son about the patient's status prognosis and treatment alternatives. He expressed a wish to be relatively conservative with therapy given the patient's downhill course over recent years and are more accelerated decline in recent months. It was agreed that the relatively acute changes should be treated as tolerated but should the patient continue to demonstrate significant deficits and poor quality of life that consideration be given purely palliative therapy. At the time of discharge the intention is to have the patient transferred to [facility] for a course of physical therapy and further medication titration. Long-term treatment will be guided by her response to this therapy. Stephan Sorenson MD Oct 28, 2018 19:03
--- NOTE | 2018-10-28 19:27 | NUR ---
HAND-OFF: Report given to VANDANA Almaraz.
[2018-10-28 20:00] VITALS: BP 133/73
[2018-10-28] MEDS: Donepezil 10mg tab ORAL SCH (21:22)
[2018-10-29] VITALS: BP 128/72
[2018-10-29 06:25] LABS: BASOPHILS % (AUTO) 1.6 % (0.0-2.0); EOSINOPHILS % (AUTO) 8.1 % (0.0-3.0); HEMATOCRIT 38.3 % (37.0-47.0); HEMOGLOBIN 13.5 G/DL (12.0-16.0); LYMPHOCYTES % (AUTO) 13.7 % (20.0-45.0); MEAN CORPUSCULAR VOLUME 98 FL (80-99); NEUTROPHILS % (AUTO) 68.5 % (45.0-75.0); PLATELET COUNT 149 K/UL (150-450); RED BLOOD COUNT 3.91 M/UL (4.20-5.40); RED CELL DISTRIBUTION WIDTH 10.5 % (11.6-14.8); WHITE BLOOD COUNT 7.8 K/UL (4.8-10.8)
[2018-10-29 07:11] LABS: ALANINE AMINOTRANSFERASE 20 U/L (12-78); ALBUMIN 2.6 G/DL (3.4-5.0); ALBUMIN/GLOBULIN RATIO 0.6 (1.0-2.7); ALKALINE PHOSPHATASE 77 U/L (46-116); ANION GAP 9 mmol/L (5-15); ASPARTATE AMINO TRANSFERASE 26 U/L (15-37); BILIRUBIN,TOTAL 1.9 MG/DL (0.2-1.0); BLOOD UREA NITROGEN 8 mg/dL (7-18); CALCIUM 9.4 MG/DL (8.5-10.1); CARBON DIOXIDE 25 MMOL/L (21-32); CHLORIDE 105 MMOL/L (98-107); CREATININE 0.7 MG/DL (0.55-1.30); SODIUM 139 MMOL/L (136-145)
[2018-10-29 07:23] LABS: BILIRUBIN,DIRECT 0.4 MG/DL (0.0-0.3)
--- NOTE | 2018-10-29 07:44 | NUR ---
NURSE NOTES: Pt resting in bed. Denies pain. no SOB. IVF infusing. Blind right eye, [place] R ear. bruises on BUE. bed in low position. bed alarm on. call light within reach. will continue to monitor.
[2018-10-29 08:00] VITALS: BP 137/63
[2018-10-29] MEDS: Carvedilol 6.25mg Tab ORAL SCH (08:52)
[2018-10-29 12:00] VITALS: BP 99/72
--- NOTE | 2018-10-29 13:43 | Infectious Diseases Prog Note ---
Assessment/Plan Assessment/Plan ASSESSMENT AND PLAN: 1. esbl e.coli uti/complicated uti, leukocytosis, possible sepsis, thrush - meropenem - day # 8/10 (can substitute ertapenem 1 gm daily if less frequent dosing needed) - clinically improved, leukocytosis resolved, more alert - MRI noted and c/w chronic cystitis - monitor labs/wbc - on diflucan for thrush as needed - no thrush currently 2. The patient has hyponatremia. 3. The patient is not anemic. 4. The patient has history of lupus. 5. Possible rheumatoid arthritis. 6. History of steroids including prednisone. 7. Coronary artery disease and [place]. 8. Hypertension. 9. Hypothyroidism. 10. Osteoarthritis. 11. Decreased visual acuity. 12. GERD. 13. CVA. 14. History of recurrent UTI. 15. Neuropathic pain. 16. Allergies to Cipro, acetaminophen, oxycodone, penicillin, plastic tape, iodine, and multiple other allergies. 17. Social history negative. 18. Family history noncontributory. 19. MAR is noted. 20. Case discussed with RN. 21. Case discussed with Dr. Stephan Sorenson. 22. Continue treatment per primary consultants. Subjective Constitutional: Reports: fatigue; Denies: fever HEENT: Denies: congestion Respiratory: Denies: shortness of breath Cardiovascular: Denies: chest pain Gastrointestinal/Abdominal: Denies: nausea, vomiting, diarrhea Genitourinary: Reports: other - + nash ; Denies: dysuria, hematuria Neurologic: Denies: headache Psychiatric: Denies: depression Skin: Denies: rash Hematologic: Denies: bleeding Musculoskeletal: Denies: pain Allergies: Coded Allergies: ACETAMINOPHEN (Verified Allergy, Unknown, 10/18/18) CIPROFLOXACIN (Verified Allergy, Unknown, 10/18/18) CODEINE (Verified Allergy, Unknown, 10/18/18) IBUPROFEN (Verified Allergy, Unknown, 10/18/18) IODINE (Verified Allergy, Unknown, 10/18/18) NAPROXEN (Verified Allergy, Unknown, 10/18/18) OXYCODONE (Verified Allergy, Unknown, 10/18/18) PENICILLINS (Verified Allergy, Unknown, 10/18/18) Shrimp (Verified Allergy, Unknown, 10/18/18) Uncoded Allergies: BRUSSEL SPROUTS (Allergy, Unknown, 10/18/18) LACTOSE INTOLERANT (Allergy, Unknown, 10/18/18) PLASTIC TAPE (Allergy, Unknown, 10/18/18) lactose intolerance (Allergy, Unknown, 10/18/18) Objective Vital Signs Last 24 Hour Vital Signs Date Time Temp Pulse Resp B/P (MAP) Pulse Ox O2 Delivery O2 Flow Rate FiO2 10/29/18 12:00 98.1 90 19 99/72 (81) 93 10/29/18 09:00 Room Air 10/29/18 08:52 65 137/63 10/29/18 08:00 97.4 65 19 137/63 (87) 93 10/29/18 04:00 97.5 94 19 99 10/29/18 00:00 97.8 80 19 128/72 (90) 98 10/28/18 21:22 76 133/64 10/28/18 21:00 Room Air 10/28/18 20:00 97.5 84 19 133/73 (93) 98 10/28/18 16:00 98.0 70 20 140/68 (92) 96 Height (Feet): 5 Height (Inches): 2.00 Weight (Pounds): 106 General Appearance: no acute distress HEENT: normocephalic, atraumatic, anicteric, mucous membranes moist Respiratory/Chest: lungs clear, normal breath sounds, no respiratory distress, no accessory muscle use Cardiovascular: normal rate, regular rhythm, no gallop/murmur, no JVD Abdomen: normal bowel sounds, soft, non tender, no organomegaly, non distended Genitourinary: other - no nash, no cva pain Extremities: no cyanosis Skin: no rash 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 No evidence of biliary ductal dilatation, choledocholithiasis or gallstones. Trabeculation and wall thickening of the urinary bladder consistent with chronic cystitis. Chest x-ray - IMPRESSION: Slight increased interstitial prominence. No focal consolidation. Microbiology Date/Time Source Procedure Growth Status 10/22/18 07:30 Blood Blood Culture - Final NO GROWTH AFTER 5 DAYS Complete 10/18/18 12:24 Nasal Nares MRSA Culture - Final NO METHICILLIN RESISTANT STAPH AUREUS... Complete 10/22/18 13:35 Straight Cath Urine Culture - Final NO GROWTH AFTER 48 HOURS Complete 10/18/18 12:24 Rectum VRE Culture - Final NO VANCOMYCIN RESISTANT ENTEROCOCCUS ... Complete 10/18/18 12:24 Rectum - Final NO CARBAPENEM-RESISTANT ENTEROBACTERI... Complete Laboratory Tests Test 10/29/18 04:58 White Blood Count 7.8 K/UL (4.8-10.8) Red Blood Count 3.91 M/UL (4.20-5.40) L Hemoglobin 13.5 G/DL (12.0-16.0) Hematocrit 38.3 % (37.0-47.0) Mean Corpuscular Volume 98 FL (80-99) Mean Corpuscular Hemoglobin 34.6 PG (27.0-31.0) H Mean Corpuscular Hemoglobin Concent 35.3 G/DL (32.0-36.0) Red Cell Distribution Width 10.5 % (11.6-14.8) L Platelet Count 149 K/UL (150-450) L Mean Platelet Volume 5.7 FL (6.5-10.1) L Neutrophils (%) (Auto) 68.5 % (45.0-75.0) Lymphocytes (%) (Auto) 13.7 % (20.0-45.0) L Monocytes (%) (Auto) 8.0 % (1.0-10.0) Eosinophils (%) (Auto) 8.1 % (0.0-3.0) H Basophils (%) (Auto) 1.6 % (0.0-2.0) Sodium Level 139 MMOL/L (136-145) Potassium Level 4.0 MMOL/L (3.5-5.1) Chloride Level 105 MMOL/L (98-107) Carbon Dioxide Level 25 MMOL/L (21-32) Anion Gap 9 mmol/L (5-15) Blood Urea Nitrogen 8 mg/dL (7-18) Creatinine 0.7 MG/DL (0.55-1.30) Estimat Glomerular Filtration Rate mL/min (>60) Glucose Level 106 MG/DL (74-106) Calcium Level 9.4 MG/DL (8.5-10.1) Magnesium Level 1.7 MG/DL (1.8-2.4) L Total Bilirubin 1.9 MG/DL (0.2-1.0) H Direct Bilirubin 0.4 MG/DL (0.0-0.3) H Aspartate Amino Transf (AST/SGOT) 26 U/L (15-37) Alanine Aminotransferase (ALT/SGPT) 20 U/L (12-78) Alkaline Phosphatase 77 U/L (46-116) Total Protein 6.8 G/DL (6.4-8.2) Albumin 2.6 G/DL (3.4-5.0) L Globulin 4.2 g/dL Albumin/Globulin Ratio 0.6 (1.0-2.7) L Current Medications Medications (Trade) Dose Ordered Sig/Mansi Route PRN Reason Start Time Stop Time Status Last Admin Dose Admin Amlodipine Besylate (Norvasc) 5 mg Q6H PRN ORAL For High Blood Pressure 10/27/18 18:30 11/26/18 18:29 Carvedilol (Coreg) 6.25 mg EVERY 12 HOURS ORAL 10/27/18 18:50 11/26/18 18:49 10/29/18 08:52 Donepezil HCl (Aricept) 10 mg QHS ORAL 10/18/18 21:00 11/17/18 20:59 10/28/18 21:22 Pantoprazole (Protonix) 40 mg DAILY ORAL 10/19/18 09:00 11/18/18 08:59 10/29/18 08:52 Prednisone (predniSONE) 5 mg DAILY ORAL 10/23/18 09:00 11/22/18 08:59 10/29/18 08:52 Na Huang MD Oct 29, 2018 13:43
--- NOTE | 2018-10-29 14:52 | NUR ---
NURSE NOTES: Report given to Alisha JENNINGS at [facility]. pt stable condition. pt awake, A/o x 2-3, on and off confusion. VS stable. IV removed. belongings /walker with pts son Heidi Hughes, tolerating diet. pt walked with PT/used walker. BM x 1 . Voiding. no home medications. Son at bedside.waiting for transportation.
--- NOTE | 2018-10-29 19:40 | NUR ---
HAND-OFF: Report given to DICK ORTEGA.
== END 2018-10-29 16:35 | DRG 690 ==
LOC: EMR 10:42 → 4E 11:16 → EDBEDREQ 13:47 → 4E 10-27 01:43
DX: N39.0 Urinary tract infection, site not specified (principal); I42.9 Cardiomyopathy, unspecified; G93.40 Encephalopathy, unspecified; F32.3 Major depressive disorder, single episode, severe with psychotic features; E87.1 Hypo-osmolality and hyponatremia; R62.7 Adult failure to thrive; B96.20 Unspecified Escherichia coli [E. coli] as the cause of diseases classified elsewhere; Z16.12 Extended spectrum beta lactamase (ESBL) resistance; R41.0 Disorientation, unspecified; F22 Delusional disorders; R63.0 Anorexia; I25.10 Atherosclerotic heart disease of native coronary artery without angina pectoris; I25.2 Old myocardial infarction; Z95.5 Presence of coronary angioplasty implant and graft; I10 Essential (primary) hypertension; M32.9 Systemic lupus erythematosus, unspecified; M19.90 Unspecified osteoarthritis, unspecified site; H35.30 Unspecified macular degeneration; H54.8 Legal blindness, as defined in USA; H91.90 Unspecified hearing loss, unspecified ear; G47.9 Sleep disorder, unspecified; R29.6 Repeated falls; R26.9 Unspecified abnormalities of gait and mobility; R53.1 Weakness; E87.6 Hypokalemia; E83.42 Hypomagnesemia; E80.6 Other disorders of bilirubin metabolism; Z88.6 Allergy status to analgesic agent; Z88.1 Allergy status to other antibiotic agents; Z88.0 Allergy status to penicillin; Z88.8 Allergy status to other drugs, medicaments and biological substances; Z66 Do not resuscitate; G62.9 Polyneuropathy, unspecified; K21.9 Gastro-esophageal reflux disease without esophagitis
CPT/HCPCS: 36415; 70450; 71045; 72195; 74181; 80048; 80053; 81001; 81003; 82248; 82550; 82553; 82570; 83605; 83690; 83735; 83880; 84300; 84439; 84443; 84484; 85007; 85025; 85651; 86140; 87040; 87081; 87086; 87181; 92610; 93005; 93306; 96365; 99285